=== PATIENT | male | born 1960 | race African-American/Black ===

== ENCOUNTER 2017-05-19 02:12 | Emergency (ER) | payer OTHER, SELFPAY ==
[2017-05-19] MEDS ORDERED: Lorazepam 2 MG/ML VIAL ONE (03:08)
[2017-05-19] MEDS ORDERED: AMOXicillin 250 MG CAP ONE (03:09)
[2017-05-19] MEDS ORDERED: Dexamethasone 10 MG/ML VIAL ONE (03:09)
[2017-05-19] MEDS ORDERED: Benzonatate 100 MG CAP ONE (03:09)
[2017-05-19] MEDS ORDERED: Ondansetron HCl/PF 4 MG/2 ML Vial ONE (03:09)
[2017-05-19] MEDS ORDERED: Ketorolac Tromethamine 30 MG/ML VIAL ONE (03:09)
[2017-05-19] MEDS ORDERED: methylPREDNISolone Sod Succ/PF 125 MG/2 ML VIAL ONE (03:09)
[2017-05-19 03:23] LABS: Band 2 % (5-11); Hemoglobin 15.4 g/dL (14.0-18.0); Hypochromia SLIGHT = 6-15 cells (100X) (0-5/hpf); Large Platelets SLIGHT; Lymphocytes 6 % (21-51); MDiff Complete? YES; Mean Corpuscular HGB CONC 31.2 g/dL (32.0-36.0); Mean Corpuscular Hemoglobin 30.6 pg (27.0-31.0); Mean Platelet Volume 10.7 fL (7.4-10.4); Monocytes 7 % (0-10); Neutrophil 84 % (42-75); PLT Morphology Comment Appears Adequate; PTT 26.9 SEC (22.9-36.1); Platelet Count 227 thou/uL (130-400); Prothrombin Time 12.9 SEC (12.0-14.7); RBC Distribution Width 12.3 % (11.5-14.5); RBC Morphology Abnormal; Reactive Lymphocytes 1 % (0-10); Red Blood Cell (RBC) Count 5.04 mill/uL (4.70-6.10); White Blood Cell (WBC) Count 20.5 thou/uL (4.8-10.8)
[2017-05-19 03:32] LABS: ALT (SGPT) 65 U/L (8-55); AST (SGOT) 87 U/L (5-34); Acetaminophen Less than 6.0 mcg/mL (10.0-30.0); Albumin 4.1 g/dL (3.5-5.0); Alcohol Less than 10 mg/dL (Less than 10); Alkaline Phosphatase 157 U/L (40-150); Anion Gap 17 mmol/L (10-20); BUN (Urea Nitrogen) 13 mg/dL (8.4-25.7); Bilirubin, Total 0.4 mg/dL (0.2-1.2); CK (CPK) 161 U/L (30-200); CKMB 2.1 ng/mL (0-6.6); Calc. Creatinine Clearance 0 mL/min (70-130); Calcium 8.8 mg/dL (7.8-10.44); Carbon Dioxide 25 mmol/L (22-29); Chloride 103 mmol/L (98-107); Estimated GFR-MDRD 84; Globulin 3.5 g/dL (2.4-3.5); Glucose 209 mg/dL (70-105); Potassium 3.5 mmol/L (3.5-5.1); Protein, Total 7.6 g/dL (6.0-8.3); Salicylate Less than 8.0 mg/dL (15.0-30.0); Sodium 141 mmol/L (136-145); Troponin I 0.027 ng/mL (< 0.028)
[2017-05-19 06:40] LABS: Bilirubin Negative (Negative); Blood, Urine Negative (Negative); Clarity Clear (Clear); Glucose, Urine (Dipstick) 100 mg/dL (Negative); Leukocyte Negative (Negative); Nitrite Negative (Negative); Protein, Urine (Dipstick) 100 mg/dL (Neg-Trace); Specific Gravity, Urine 1.025 (1.005-1.030); Urobilinogen 0.2 mg/dL (0.2-1.0); pH, Urine 5.5 (5.0-9.0)
[2017-05-19 06:42] LABS: Bacteria/HPF Rare-Few HPF (None Seen); RBC/HPF 0-3 HPF (0-3); Squamous Epithelial 0-3 HPF (0-3); WBC/HPF 0-3 HPF (0-3)
[2017-05-19 06:55] LABS: Amphetamine Not Detected (NotDetected); Barbiturates Screen Not Detected (NotDetected); Benzodiazepine Screen Detected (NotDetected); Cocaine Metabolite Screen Detected (NotDetected); Medtox Control Line Valid? VALID (VALID); Methadone Not Detected (NotDetected); Methamphetamine Not Detected (NotDetected); Opiate Screen Not Detected (NotDetected); Oxycodone Screen Not Detected (NotDetected); Phencyclidine (PCP) Not Detected (NotDetected); THC/Cannabinoid Screen Not Detected (NotDetected); Tricyclic Screen Not Detected (NotDetected)
--- NOTE | 2017-05-19 08:02 | RAD ---
PORTABLE AP CHEST: Date: 05-19-17 History: Dyspnea. Comparison: 12-10-16 FINDINGS: Cardiac silhouette is magnified by projection but does appear mildly enlarged. There is increased per ihilar interstitial densities bilaterally which could be related to either asymmetric pulmonary edema or infectious process. No consolidation or pleural fluid is evident. No other interval change. IMPRESSION: 1. Bilateral perihilar interstitial opacities greater in the left upper lung zone. Findings may be re lated to either asymmetric pulmonary edema or infectious process. Continued follow up to resolution i s recommended. 2. Cardiomegaly. POS: [facility]
== END 2017-05-19 07:24 | disposition home or self-care (01) ==
LOC: MADERS 02:12
DX: F41.9 Anxiety disorder, unspecified (principal); F14.10 Cocaine abuse, uncomplicated; J44.9 Chronic obstructive pulmonary disease, unspecified; I25.2 Old myocardial infarction; I11.0 Hypertensive heart disease with heart failure; I50.9 Heart failure, unspecified; F17.210 Nicotine dependence, cigarettes, uncomplicated
CPT/HCPCS: 71045; 80053; 80306; 80307; 81001; 82553; 83880; 84484; 85025; 85379; 85610; 85730; 93005; 94640; 96374; 96375; J1100; J1885; J2060; J2405; J2930; J7620

== ENCOUNTER 2018-03-02 02:17 | Emergency (ER) | payer SELFPAY ==
[2018-03-02] MEDS ORDERED: Sodium Chloride For Inhalation 0.9% 3 ML NEB ONE (02:22)
[2018-03-02] MEDS ORDERED: Morphine 4 MG/ML VIAL ONE (02:35)
[2018-03-02] MEDS ORDERED: cefTRIAXone\\ROCEPHIN 1 GM VIAL ONE (02:35)
[2018-03-02] MEDS ORDERED: Ondansetron HCl/PF 4 MG/2 ML Vial ONE (02:35)
[2018-03-02] MEDS ORDERED: Furosemide 40 MG/4 ML VIAL ONE (02:49)
[2018-03-02 03:07] LABS: Anion Gap 18 mmol/L (10-20); BUN (Urea Nitrogen) 18 mg/dL (8.4-25.7); CK (CPK) 130 U/L (30-200); Calc. Creatinine Clearance 0 mL/min (70-130); Calcium 9.5 mg/dL (7.8-10.44); Carbon Dioxide 24 mmol/L (22-29); Chloride 106 mmol/L (98-107); Estimated GFR-MDRD 69; Glucose 243 mg/dL (70-105); Potassium 3.5 mmol/L (3.5-5.1); Sodium 144 mmol/L (136-145)
[2018-03-02 03:13] LABS: Troponin I 0.067 ng/mL (< 0.028)
[2018-03-02 03:28] LABS: #Basophils 0.2 thou/uL (0.0-0.2); #Eosinphils 0.1 thou/uL (0.0-0.7); #Lymphocytes 4.9 thou/uL (1.20-3.40); #Monocytes 1.4 thou/uL (0.11-0.59); #Neutrophils 8.9 thou/uL (1.40-6.50); %Basophils 1.4 % (0.0-1.0); %Eosinophils 0.5 % (0.0-10.0); %Lymphocytes 31.5 % (21.0-51.0); %Monocytes 8.8 % (0.0-10.0); %Neutrophils 57.9 % (42.0-75.0); Mean Corpuscular HGB CONC 32.2 g/dL (32.0-36.0); Mean Corpuscular Hemoglobin 30.9 pg (27.0-31.0); Mean Corpuscular Volume 95.9 fL (78.0-98.0); Mean Platelet Volume 11.2 fL (7.4-10.4); Platelet Count 258 thou/uL (130-400); RBC Distribution Width 12.4 % (11.5-14.5); Red Blood Cell (RBC) Count 4.84 mill/uL (4.70-6.10); White Blood Cell (WBC) Count 15.4 thou/uL (4.8-10.8)
[2018-03-02 03:35] LABS: CKMB 2.8 ng/mL (0-6.6)
[2018-03-02] MEDS ORDERED: Fentanyl 100 MCG/2 ML VIAL ONE (03:35)
--- NOTE | 2018-03-02 08:09 | RAD ---
FRONTAL VIEW CHEST: Date: 03/02/18 COMPARISON: 06/14/17. INDICATION: Dyspnea. FINDINGS: There is diffuse abnormal interstitial and alveolar opacification throughout the lungs, with a more f ocal area of opacity at the right suprahilar region. The cardiac silhouette and pulmonary vasculature are enlarged. No obvious effusion or discrete pneumothorax. IMPRESSION: Diffuse abnormal pulmonary parenchymal opacities, which may be on the basis of a diffuse atypical pne umonia. Alternatively, superimposed edema and/or inflammatory process not excluded. Recommend clinica l correlation, as well as imaging follow-up, to confirm resolution. CODE T.
[2018-03-02] MEDS ORDERED: HYDROcodone/Acetaminophen 5/325 mg Tablet ONE (09:41)
[2018-03-02] MEDS ORDERED: Ibuprofen 800 MG TAB ONE (09:41)
[2018-03-02] MEDS ORDERED: Bacitracin Zinc 1 Packet ONE (10:44)
[2018-03-02] MEDS ORDERED: Cephalexin 500 MG CAP ONE (10:44)
== END 2018-03-02 04:40 | disposition short-term general hospital (02) ==
LOC: MADERS 02:17
DX: I11.0 Hypertensive heart disease with heart failure (principal); I50.9 Heart failure, unspecified; J44.1 Chronic obstructive pulmonary disease with (acute) exacerbation; I25.2 Old myocardial infarction; F17.210 Nicotine dependence, cigarettes, uncomplicated; Z79.899 Other long term (current) drug therapy
CPT/HCPCS: 36415; 71045; 80048; 82550; 82553; 83880; 84484; 85025; 93005; 94644; 94760; 96374; 96375; J0696; J1940; J2270; J2405; J3010; J7620

== ENCOUNTER 2018-04-17 12:24 | Emergency (ER) | payer SELFPAY ==
[2018-04-17] MEDS ORDERED: Furosemide 40 MG/4 ML VIAL ONE (13:03)
[2018-04-17] MEDS ORDERED: Furosemide 20 MG/2 ML VIAL ONE (13:03)
[2018-04-17 13:32] LABS: Anion Gap 12 mmol/L (10-20); BUN (Urea Nitrogen) 19 mg/dL (8.4-25.7); Calc. Creatinine Clearance 0 mL/min (70-130); Carbon Dioxide 25 mmol/L (22-29); Chloride 109 mmol/L (98-107); Estimated GFR-MDRD Greater than 90; Glucose 100 mg/dL (70-105); Potassium 3.4 mmol/L (3.5-5.1); Sodium 143 mmol/L (136-145)
[2018-04-17] MEDS ORDERED: Potassium Chloride 20 MEQ TAB ONE (14:12)
== END 2018-04-17 14:23 | disposition home or self-care (01) ==
LOC: MADERS 12:24
DX: I11.0 Hypertensive heart disease with heart failure (principal); I50.9 Heart failure, unspecified; E87.6 Hypokalemia; J44.9 Chronic obstructive pulmonary disease, unspecified; I25.2 Old myocardial infarction; F17.210 Nicotine dependence, cigarettes, uncomplicated; Z79.899 Other long term (current) drug therapy; Z79.82 Long term (current) use of aspirin
CPT/HCPCS: 80048; 96374; J1940

== ENCOUNTER 2018-06-03 14:10 | Emergency (ER) | payer SELFPAY ==
[2018-06-03] MEDS ORDERED: predniSONE 10 MG TAB ONE (14:47)
--- NOTE | 2018-06-03 15:11 | RAD ---
CHEST TWO VIEWS: HISTORY: Dyspnea. CHF. COMPARISON: 03/02/2018 FINDINGS: The cardiac silhouette and pulmonary vasculature are at the upper limits of normal. The mediastinum is midline with aortic calcification. No lobar consolidation, pneumothorax, or pleural fluid. IMPRESSION: 1. Borderline cardiomegaly and pulmonary vascular congestion are stable. 2. Atherosclerosis. POS: [facility]
[2018-06-03 15:15] LABS: Anion Gap 13 mmol/L (10-20); BUN (Urea Nitrogen) 13 mg/dL (8.4-25.7); Calc. Creatinine Clearance 0 mL/min (70-130); Calcium 9.4 mg/dL (7.8-10.44); Carbon Dioxide 34 mmol/L (22-29); Chloride 101 mmol/L (98-107); Estimated GFR-MDRD Greater than 90; Glucose 100 mg/dL (70-105); Potassium 3.4 mmol/L (3.5-5.1); Sodium 145 mmol/L (136-145)
[2018-06-03 15:37] LABS: CKMB 1.4 ng/mL (0-6.6)
[2018-06-03] MEDS ORDERED: Furosemide 20 MG/2 ML VIAL ONE (16:04)
[2018-06-03] MEDS ORDERED: Furosemide 40 MG/4 ML VIAL ONE (16:04)
[2018-06-03] MEDS ORDERED: Sodium Chloride 0.9% 0 ML ONE (17:13)
[2018-06-03] MEDS ORDERED: Acetaminophen 500 MG TAB ONE (17:13)
[2018-06-03] MEDS ORDERED: Lorazepam 2 MG/ML VIAL ONE (17:13)
[2018-06-03] MEDS ORDERED: Potassium Chloride 20 MEQ TAB ONE (17:25)
== END 2018-06-03 17:35 | disposition home or self-care (01) ==
LOC: MADERS 14:10
DX: I50.9 Heart failure, unspecified (principal); E87.6 Hypokalemia; I25.10 Atherosclerotic heart disease of native coronary artery without angina pectoris; Z79.899 Other long term (current) drug therapy; Z79.82 Long term (current) use of aspirin
CPT/HCPCS: 36415; 71046; 80048; 82553; 83880; 84484; 93005; 96372; J1940; J2060; J7050; J7512; J7620

== ENCOUNTER 2018-11-29 11:39 | Emergency (ER) | payer MEDICAID, OTHER ==
--- NOTE | 2018-11-29 12:31 | CT ---
CT ABDOMEN AND PELVIS WITHOUT CONTRAST: HISTORY: Bilateral flank pain. COMPARISON: 05/23/2014 TECHNIQUE: Multiple contiguous axial images were obtained in a CT of the abdomen and pelvis without contrast. C oronal reformats were performed. FINDINGS: Calcifications in the hilar regions of both kidneys are stable and likely represent vascular calcific ations. No obvious collecting system calcifications are seen. No calcifications are seen along the ureters or within the urinary bladder. The liver, gallbladder, adrenal glands, spleen, and pancreas are unremarkable, although evaluation is limited without IV contrast. No free air, free fluid, or stranding changes are seen in the abdomen or pelvis. The large and small bowel are unremarkable. The appendix is unremarkable. No abdominal or pelvic ly mphadenopathy are seen. There is a stable, well circumscribed mass along the anterior abdominal wall , just anterior to the liver, measuring 2.3 cm in greatest dimension. Atherosclerotic calcifications are seen in the aorta. Degenerative changes are seen in the spine. The visualized inferior thorax and abdominal wall soft t issues are unremarkable. IMPRESSION: 1. No evidence of acute intraabdominal/pelvic abnormality. 2. Stable mass along the anterior peritoneum, just anterior to the liver. This is nonspecific. POS: [facility]
[2018-11-29 12:33] LABS: #Basophils 0.2 thou/uL (0.0-0.2); #Eosinphils 0.1 thou/uL (0.0-0.7); #Lymphocytes 2.1 thou/uL (1.20-3.40); #Neutrophils 6.6 thou/uL (1.40-6.50); %Basophils 1.6 % (0.0-1.0); %Lymphocytes 21.6 % (21.0-51.0); %Monocytes 9.8 % (0.0-10.0); %Neutrophils 66.1 % (42.0-75.0); Hemoglobin 13.2 g/dL (14.0-18.0); Mean Corpuscular HGB CONC 31.2 g/dL (32.0-36.0); Mean Corpuscular Hemoglobin 27.9 pg (27.0-31.0); Mean Corpuscular Volume 89.5 fL (78.0-98.0); Mean Platelet Volume 10.5 fL (7.4-10.4); Platelet Count 204 thou/uL (130-400); RBC Distribution Width 12.6 % (11.5-14.5); Red Blood Cell (RBC) Count 4.71 mill/uL (4.70-6.10); White Blood Cell (WBC) Count 9.9 thou/uL (4.8-10.8)
[2018-11-29 12:35] LABS: Bilirubin Negative (Negative); Blood, Urine Negative (Negative); Clarity Clear (Clear); Glucose, Urine (Dipstick) Negative (Negative); Leukocyte Negative (Negative); Nitrite Negative (Negative); Protein, Urine (Dipstick) Negative (Neg-Trace); Urobilinogen 0.2 mg/dL (Less than 2)
[2018-11-29 12:52] LABS: ALT (SGPT) 26 U/L (8-55); AST (SGOT) 22 U/L (5-34); Albumin 4.3 g/dL (3.5-5.0); Alkaline Phosphatase 87 U/L (40-150); Anion Gap 15 mmol/L (10-20); BUN (Urea Nitrogen) 20 mg/dL (8.4-25.7); Bilirubin, Total 0.4 mg/dL (0.2-1.2); Calc. Creatinine Clearance 0 mL/min (70-130); Calcium 9.3 mg/dL (7.8-10.44); Carbon Dioxide 31 mmol/L (22-29); Chloride 100 mmol/L (98-107); Estimated GFR-MDRD 72; Globulin 3.6 g/dL (2.4-3.5); Glucose 101 mg/dL (70-105); Lipase 44 U/L (8-78); Potassium 4.3 mmol/L (3.5-5.1); Protein, Total 7.9 g/dL (6.0-8.3); Sodium 142 mmol/L (136-145)
== END 2018-11-29 13:02 | disposition home or self-care (01) ==
LOC: MADERS 11:39
DX: R10.9 Unspecified abdominal pain (principal); I11.0 Hypertensive heart disease with heart failure; I50.9 Heart failure, unspecified; J44.9 Chronic obstructive pulmonary disease, unspecified; Z87.891 Personal history of nicotine dependence; Z79.899 Other long term (current) drug therapy; Z79.82 Long term (current) use of aspirin
CPT/HCPCS: 36415; 74176; 80053; 81003; 83690; 85025

== ENCOUNTER 2019-04-05 12:37 | Outpatient (CLI) | payer OTHER ==
--- NOTE | 2019-04-05 14:41 | RAD ---
LEFT RIBS 4 VIEWS: Date: 04/05/19 HISTORY: Left-sided rib pain. No history of trauma. FINDINGS: Heart size and mediastinum are within normal limits. Pacemaker is present. Lungs are clear of any inf iltrates. No rib fractures are identified. No lytic or blastic bony change. IMPRESSION: Negative left ribs. POS: [facility]
== END 2019-04-05 12:38 | disposition home or self-care (01) ==
LOC: MADRAD 12:37
PROVIDERS: ATTEND Family Medicine
DX: R07.81 Pleurodynia (principal)

== ENCOUNTER 2019-11-23 09:00 | Outpatient (CLI) | payer OTHER ==
--- NOTE | 2019-11-23 09:50 | ULT ---
ULTRASOUND ABDOMEN: HISTORY: Abdominal pain FINDINGS: The liver demonstrates increased echogenicity consistent with fatty infiltration. The spleen, gallbla dder, pancreas, kidneys and visualized portions of the aorta and IVC appear normal. The common duct measures 3 mm in diameter. No free fluid is seen. IMPRESSION: Fatty liver.
== END 2019-11-23 09:01 | disposition home or self-care (01) ==
LOC: MADULT 09:00
PROVIDERS: ATTEND Internal Medicine Gastroenterology
DX: R18.8 Other ascites (principal); K76.0 Fatty (change of) liver, not elsewhere classified
CPT/HCPCS: 93975

== ENCOUNTER 2020-03-25 18:32 | Emergency (ER) | payer OTHER ==
[2020-03-26 21:27] LABS: SARS-CoV-2 MS2 Positive; SARS-CoV-2 N Gene Positive; SARS-CoV-2 S Gene Positive; SARS-CoV-2 by NAA DETECTED (NotDetected); SARS-CoV-2 orf1ab Positive
== END 2020-03-25 20:04 | disposition home or self-care (01) ==
LOC: MADERS 18:32
DX: U07.1 COVID-19 (principal); R05 Cough; R09.81 Nasal congestion; I11.0 Hypertensive heart disease with heart failure; I50.9 Heart failure, unspecified; J44.9 Chronic obstructive pulmonary disease, unspecified; Z87.891 Personal history of nicotine dependence; Z79.82 Long term (current) use of aspirin; Z79.899 Other long term (current) drug therapy
CPT/HCPCS: 87635; 99283; U0003

== ENCOUNTER 2020-04-10 16:05 | Emergency (ER) | payer OTHER ==
--- NOTE | 2020-04-10 17:09 | RAD ---
RADIOGRAPH CHEST 1 VIEW: DATE: 04/10/2020 TIME: 5:07 PM HISTORY: 60-year-old male with cough COMPARISON: 03/01/2019 FINDINGS: New subtle finding of diffusely prominent interstitial markings, especially in the left lung. No card iomegaly. Left subclavian AICD. No pneumothorax. Lateral costophrenic angles are sharp. No consolidation. IMPRESSION: 1) no consolidation. 2) mild prominent interstitial markings, nonspecific.
== END 2020-04-10 17:25 | disposition home or self-care (01) ==
LOC: MADERS 16:05
DX: U07.1 COVID-19 (principal); I11.0 Hypertensive heart disease with heart failure; I50.9 Heart failure, unspecified; E11.9 Type 2 diabetes mellitus without complications; J44.9 Chronic obstructive pulmonary disease, unspecified; F17.210 Nicotine dependence, cigarettes, uncomplicated; Z79.82 Long term (current) use of aspirin; Z79.899 Other long term (current) drug therapy
CPT/HCPCS: 71045

== ENCOUNTER 2020-05-03 08:23 | Outpatient (CLI) | payer OTHER ==
--- NOTE | 2020-05-03 11:38 | RAD ---
PA AND LATERAL CHEST: Date: 05/03/2020 HISTORY: COPD and bronchitis. COMPARISON: 04/10/2020 exam. FINDINGS: Heart size within normal limits. Pacemaker is present. Lungs are clear of infiltrates. Flattening to the hemidiaphragms consistent with the history of COPD. IMPRESSION: No active intrathoracic disease. POS: [facility]
== END 2020-05-03 08:24 | disposition home or self-care (01) ==
LOC: MADRAD 08:23
PROVIDERS: ATTEND Family Medicine
DX: J40 Bronchitis, not specified as acute or chronic (principal)
CPT/HCPCS: 71046

== ENCOUNTER 2021-02-15 08:29 | Emergency (ER) | payer OTHER ==
[2021-02-15] MEDS ORDERED: Sodium Chloride 0.9% 1,000 ML ONE (08:53)
[2021-02-15] MEDS ORDERED: methylPREDNISolone Sod Succ/PF 125 MG/2 ML VIAL ONE (08:53)
[2021-02-15 09:22] LABS: Hemoglobin 13.6 g/dL (14.0-18.0); Mean Corpuscular HGB CONC 30.3 g/dL (32.0-36.0); Mean Corpuscular Hemoglobin 27.4 pg (27.0-31.0); Mean Corpuscular Volume 90.3 fL (78.0-98.0); Mean Platelet Volume 11.7 fL (7.4-10.4); Platelet Count 238 thou/uL (130-400); RBC Distribution Width 12.9 % (11.5-14.5); Red Blood Cell (RBC) Count 4.95 mill/uL (4.70-6.10); White Blood Cell (WBC) Count 11.1 thou/uL (4.8-10.8)
[2021-02-15 09:27] LABS: MDiff Complete? YES; Manual Diff?? YES
[2021-02-15 09:28] LABS: Band 3 % (5-11); Eosinophils 2 % (0-10); Lymphocytes 12 % (21-51); Monocytes 8 % (0-10); Neutrophil 75 % (42-75)
[2021-02-15 09:29] LABS: Anisocytosis SLIGHT = 6-15 cells (100X) (0-5/hpf); Platelet Morphology Comment Appears Adequate
[2021-02-15 09:33] LABS: ALT (SGPT) 20 U/L (8-55); AST (SGOT) 18 U/L (5-34); Albumin 3.7 g/dL (3.5-5.0); Alkaline Phosphatase 77 U/L (40-110); Anion Gap 13 mmol/L (10-20); BUN (Urea Nitrogen) 11 mg/dL (8.4-25.7); Bilirubin, Total 0.3 mg/dL (0.2-1.2); Calc. Creatinine Clearance 0 mL/min (70-130); Calcium 9.1 mg/dL (7.8-10.44); Carbon Dioxide 24 mmol/L (22-29); Chloride 106 mmol/L (98-107); Globulin 3.5 g/dL (2.4-3.5); Glucose 159 mg/dL (70-105); Potassium 3.9 mmol/L (3.5-5.1); Protein, Total 7.2 g/dL (6.0-8.3); Sodium 139 mmol/L (136-145)
[2021-02-15 10:00] LABS: CKMB 2.2 ng/mL (0-6.6)
== END 2021-02-15 12:57 | disposition home or self-care (01) ==
LOC: MADERS 08:29
DX: J44.1 Chronic obstructive pulmonary disease with (acute) exacerbation (principal); K21.9 Gastro-esophageal reflux disease without esophagitis; E78.5 Hyperlipidemia, unspecified; E78.00 Pure hypercholesterolemia, unspecified; I11.0 Hypertensive heart disease with heart failure; I50.9 Heart failure, unspecified; F17.210 Nicotine dependence, cigarettes, uncomplicated; Z79.82 Long term (current) use of aspirin; Z79.899 Other long term (current) drug therapy
CPT/HCPCS: 36415; 71045; 80053; 82553; 83880; 84484; 85025; 93005; 94760; 96374; 99406; J2930; J7050; J7620

== ENCOUNTER 2021-03-05 10:43 | Emergency (ER) | payer OTHER ==
[2021-03-05 11:58] LABS: #Basophils 0.1 thou/uL (0.0-0.2); #Eosinphils 0.1 thou/uL (0.0-0.7); #Lymphocytes 1.8 thou/uL (1.20-3.40); #Monocytes 0.9 thou/uL (0.11-0.59); #Neutrophils 9.1 thou/uL (1.40-6.50); %Basophils 0.7 % (0.0-1.0); %Eosinophils 0.9 % (0.0-10.0); %Lymphocytes 15.4 % (21.0-51.0); %Monocytes 7.2 % (0.0-10.0); %Neutrophils 75.8 % (42.0-75.0); Hemoglobin 11.2 g/dL (14.0-18.0); Mean Corpuscular HGB CONC 30.7 g/dL (32.0-36.0); Mean Corpuscular Hemoglobin 27.8 pg (27.0-31.0); Mean Corpuscular Volume 90.3 fL (78.0-98.0); Mean Platelet Volume 9.3 fL (7.4-10.4); Platelet Count 272 thou/uL (130-400); Red Blood Cell (RBC) Count 4.05 mill/uL (4.70-6.10)
[2021-03-05 12:08] LABS: PTT 31.4 sec (22.9-36.1); Prothrombin Time 12.7 sec (12.0-14.7)
[2021-03-05 12:18] LABS: Carbon Dioxide 27 mmol/L (22-29); Chloride 107 mmol/L (98-107); Sodium 144 mmol/L (136-145)
[2021-03-05 12:19] LABS: ALT (SGPT) 24 U/L (8-55); Anion Gap 14 mmol/L (10-20); BUN (Urea Nitrogen) 16 mg/dL (8.4-25.7); Bilirubin, Total 0.3 mg/dL (0.2-1.2); Calc. Creatinine Clearance 0 mL/min (70-130); Calcium 9.8 mg/dL (7.8-10.44); Glucose 96 mg/dL (70-105)
[2021-03-05 12:20] LABS: Albumin 3.6 g/dL (3.5-5.0); Globulin 3.2 g/dL (2.4-3.5); Protein, Total 6.8 g/dL (6.0-8.3)
[2021-03-05 12:21] LABS: AST (SGOT) 17 U/L (5-34); Alkaline Phosphatase 87 U/L (40-110)
[2021-03-05] MEDS ORDERED: Morphine 4 MG/ML VIAL ONE (13:09)
== END 2021-03-05 14:15 | disposition short-term general hospital (02) ==
LOC: MADERS 10:43
DX: L76.82 Other postprocedural complications of skin and subcutaneous tissue (principal); R60.0 Localized edema; M79.652 Pain in left thigh; M79.662 Pain in left lower leg; K21.9 Gastro-esophageal reflux disease without esophagitis; E78.5 Hyperlipidemia, unspecified; E78.00 Pure hypercholesterolemia, unspecified; I11.0 Hypertensive heart disease with heart failure; I50.9 Heart failure, unspecified; J44.9 Chronic obstructive pulmonary disease, unspecified; F17.210 Nicotine dependence, cigarettes, uncomplicated; Z79.82 Long term (current) use of aspirin; Z79.01 Long term (current) use of anticoagulants; Z79.899 Other long term (current) drug therapy
CPT/HCPCS: 36415; 80053; 85025; 85610; 85730; 93005; J2270

== ENCOUNTER 2021-03-22 09:46 | Emergency (ER) | payer OTHER ==
[2021-03-22] MEDS ORDERED: Cephalexin 500 MG CAP ONE (10:50)
== END 2021-03-22 10:55 | disposition home or self-care (01) ==
LOC: MADERS 09:46
DX: L03.116 Cellulitis of left lower limb (principal); S81.812D Laceration without foreign body, left lower leg, subsequent encounter; E78.00 Pure hypercholesterolemia, unspecified; E78.5 Hyperlipidemia, unspecified; J45.909 Unspecified asthma, uncomplicated; I11.0 Hypertensive heart disease with heart failure; I50.9 Heart failure, unspecified; J44.9 Chronic obstructive pulmonary disease, unspecified; K21.9 Gastro-esophageal reflux disease without esophagitis; Z86.718 Personal history of other venous thrombosis and embolism; F17.210 Nicotine dependence, cigarettes, uncomplicated; Z79.899 Other long term (current) drug therapy; Z79.82 Long term (current) use of aspirin; Z79.891 Long term (current) use of opiate analgesic; X58.XXXD Exposure to other specified factors, subsequent encounter
CPT/HCPCS: 99283

== ENCOUNTER 2021-07-09 09:28 | Outpatient (CLI) | payer OTHER | END 2021-07-09 09:29 | disposition home or self-care (01) | LOC: MADRAD 09:28 | PROVIDERS: ATTEND Family Medicine | DX: R14.0 Abdominal distension (gaseous) (principal) | CPT/HCPCS: 74018 ==

== ENCOUNTER 2021-10-02 08:40 | Outpatient (CLI) | payer OTHER | END 2021-10-02 08:41 | disposition home or self-care (01) | LOC: MADULT 08:40 | PROVIDERS: ATTEND Nurse Practitioner Family | DX: D17.5 Benign lipomatous neoplasm of intra-abdominal organs (principal) | CPT/HCPCS: 76700 ==

== ENCOUNTER 2022-01-25 15:30 | Emergency (ER) | payer OTHER ==
[2022-01-25 16:20] LABS: ALT (SGPT) 10 U/L (8-55); AST (SGOT) 13 U/L (5-34); Alkaline Phosphatase 90 U/L (40-110); Anion Gap 16 mmol/L (10-20); BUN (Urea Nitrogen) 19 mg/dL (8.4-25.7); Bilirubin, Total 0.2 mg/dL (0.2-1.2); Calc. Creatinine Clearance 0 mL/min (70-130); Calcium 9.7 mg/dL (7.8-10.44); Carbon Dioxide 28 mmol/L (22-29); Chloride 104 mmol/L (98-107); Estimated GFR 65; Globulin 3.7 g/dL (2.4-3.5); Glucose 118 mg/dL (70-105); Potassium 3.9 mmol/L (3.5-5.1); Protein, Total 7.7 g/dL (6.0-8.3); Sodium 144 mmol/L (136-145)
[2022-01-25 16:21] LABS: #Basophils 0.2 thou/uL (0.0-0.2); #Eosinphils 0.2 thou/uL (0.0-0.7); #Lymphocytes 2.7 thou/uL (1.20-3.40); #Neutrophils 6.3 thou/uL (1.40-6.50); %Basophils 1.7 % (0.0-1.0); %Eosinophils 2.1 % (0.0-10.0); %Lymphocytes 25.8 % (21.0-51.0); %Monocytes 9.3 % (0.0-10.0); %Neutrophils 61.2 % (42.0-75.0); Hemoglobin 12.8 g/dL (14.0-18.0); Hypochromia SLIGHT = 6-15 cells (100X) (0-5/hpf); MDiff Complete? YES; Mean Corpuscular HGB CONC 29.6 g/dL (32.0-36.0); Mean Corpuscular Hemoglobin 25.6 pg (27.0-31.0); Mean Corpuscular Volume 86.5 fL (78.0-98.0); Mean Platelet Volume 12.5 fL (7.4-10.4); Platelet Count 209 thou/uL (130-400); Platelet Morphology Comment Appears Adequate; RBC Distribution Width 13.3 % (11.5-14.5); Red Blood Cell (RBC) Count 5.02 mill/uL (4.70-6.10); White Blood Cell (WBC) Count 10.4 thou/uL (4.8-10.8)
[2022-01-25] MEDS ORDERED: Furosemide 40 MG/4 ML VIAL ONE (16:24)
[2022-01-25 16:37] LABS: CKMB 1.7 ng/mL (0-6.6)
[2022-01-25 16:39] LABS: Bilirubin Negative (Negative); Blood, Urine Negative (Negative); Clarity Clear (Clear); Glucose, Urine (Dipstick) >=1000 mg/dL (Negative); Ketone, Urine Negative (Negative); Leukocyte Negative (Negative); Nitrite Negative (Negative); Protein, Urine (Dipstick) Negative (Neg-Trace); Urobilinogen 0.2 mg/dL (Less than 2)
== END 2022-01-25 16:57 | disposition home or self-care (01) ==
LOC: MADERS 15:30
DX: I11.0 Hypertensive heart disease with heart failure (principal); I50.9 Heart failure, unspecified; I45.89 Other specified conduction disorders; K21.9 Gastro-esophageal reflux disease without esophagitis; E78.00 Pure hypercholesterolemia, unspecified; J44.9 Chronic obstructive pulmonary disease, unspecified; F17.210 Nicotine dependence, cigarettes, uncomplicated; Z79.82 Long term (current) use of aspirin; Z79.01 Long term (current) use of anticoagulants; Z79.899 Other long term (current) drug therapy
CPT/HCPCS: 71045; 80053; 81003; 82553; 83605; 83880; 84484; 85025; 93005; 94760; 96374; J1940

== ENCOUNTER 2022-03-25 06:51 | Outpatient (CLI) | payer OTHER ==
[2022-03-25 07:42] LABS: ALT (SGPT) 11 U/L (8-55); AST (SGOT) 15 U/L (5-34); Alkaline Phosphatase 91 U/L (40-110); Anion Gap 15 mmol/L (10-20); BUN (Urea Nitrogen) 18 mg/dL (8.4-25.7); Bilirubin, Total 0.3 mg/dL (0.2-1.2); Calc. Creatinine Clearance 0 mL/min (70-130); Calcium 9.4 mg/dL (7.8-10.44); Carbon Dioxide 26 mmol/L (23-31); Cardiac Risk 3.9 (Less than 4.5); Chloride 103 mmol/L (98-107); Cholesterol 128 mg/dl (< 200 Desired); Estimated GFR 79; Globulin 3.7 g/dL (2.4-3.5); Glucose 132 mg/dL (80-115); HDL Cholesterol 33 mg/dL (>60 Neg Risk); LDL Cholesterol, Calculated 81 mg/dL; Potassium 3.7 mmol/L (3.5-5.1); Protein, Total 7.7 g/dL (5.8-8.1); Sodium 140 mmol/L (136-145); Triglycerides 72 mg/dL (Less than 150)
== END 2022-03-25 06:52 | disposition home or self-care (01) ==
LOC: MADLAB 06:51
PROVIDERS: ATTEND Internal Medicine Cardiovascular Disease
DX: I25.10 Atherosclerotic heart disease of native coronary artery without angina pectoris (principal)
CPT/HCPCS: 36415; 80053; 80061; 83880

== ENCOUNTER 2022-05-06 10:41 | Emergency (ER) | payer OTHER | END 2022-05-06 11:56 | disposition home or self-care (01) | LOC: MADERS 10:41 | DX: M79.672 Pain in left foot (principal); I73.9 Peripheral vascular disease, unspecified; K21.9 Gastro-esophageal reflux disease without esophagitis; I11.0 Hypertensive heart disease with heart failure; I50.9 Heart failure, unspecified; J44.9 Chronic obstructive pulmonary disease, unspecified; E78.00 Pure hypercholesterolemia, unspecified; F17.210 Nicotine dependence, cigarettes, uncomplicated; Z79.899 Other long term (current) drug therapy | CPT/HCPCS: 99283 ==

== ENCOUNTER 2022-05-20 11:20 | Emergency (ER) | payer OTHER ==
[2022-05-20 12:27] LABS: #Basophils 0.2 thou/uL (0.0-0.2); #Eosinphils 0.2 thou/uL (0.0-0.7); #Lymphocytes 2.1 thou/uL (1.20-3.40); #Monocytes 0.7 thou/uL (0.11-0.59); #Neutrophils 6.4 thou/uL (1.40-6.50); %Basophils 1.6 % (0.0-1.0); %Eosinophils 2.1 % (0.0-10.0); %Lymphocytes 22.4 % (21.0-51.0); %Monocytes 7.2 % (0.0-10.0); %Neutrophils 66.7 % (42.0-75.0); Hemoglobin 12.9 g/dL (14.0-18.0); Mean Corpuscular HGB CONC 30.8 g/dL (32.0-36.0); Mean Corpuscular Hemoglobin 26.9 pg (27.0-31.0); Mean Corpuscular Volume 87.4 fl (78.0-98.0); Mean Platelet Volume 9.8 fL (7.4-10.4); Platelet Count 239 10x3/uL (130-400); RBC Distribution Width 14.1 % (11.5-14.5); Red Blood Cell (RBC) Count 4.81 mill/uL (4.70-6.10); White Blood Cell (WBC) Count 9.5 10x3/uL (4.8-10.8)
[2022-05-20 12:45] LABS: ALT (SGPT) 12 U/L (8-55); AST (SGOT) 12 U/L (5-34); Albumin 3.7 g/dL (3.4-4.8); Alkaline Phosphatase 75 U/L (40-110); Anion Gap 13 mmol/L (10-20); BUN (Urea Nitrogen) 21 mg/dL (8.4-25.7); Bilirubin, Total 0.2 mg/dL (0.2-1.2); Calc. Creatinine Clearance 0 mL/min (70-130); Calcium 8.9 mg/dL (7.8-10.44); Carbon Dioxide 25 mmol/L (23-31); Chloride 108 mmol/L (98-107); Estimated GFR 84; Globulin 3.1 g/dL (2.4-3.5); Glucose 97 mg/dL (80-115); Potassium 4.2 mmol/L (3.5-5.1); Protein, Total 6.8 g/dL (5.8-8.1); Sodium 142 mmol/L (136-145)
== END 2022-05-20 13:55 | disposition home or self-care (01) ==
LOC: MADERS 11:20
DX: I73.9 Peripheral vascular disease, unspecified (principal); T82.868A Thrombosis due to vascular prosthetic devices, implants and grafts, initial encounter; K21.9 Gastro-esophageal reflux disease without esophagitis; I11.0 Hypertensive heart disease with heart failure; I50.9 Heart failure, unspecified; E78.5 Hyperlipidemia, unspecified; J44.9 Chronic obstructive pulmonary disease, unspecified; E78.00 Pure hypercholesterolemia, unspecified; F17.210 Nicotine dependence, cigarettes, uncomplicated; Z79.82 Long term (current) use of aspirin
CPT/HCPCS: 80053; 85025; 99283

== ENCOUNTER 2022-06-19 06:49 | Emergency (ER) | payer MEDICAID, OTHER ==
[2022-06-19 08:08] LABS: #Basophils 0.2 thou/uL (0.0-0.2); #Eosinphils 0.4 thou/uL (0.0-0.7); #Lymphocytes 2.6 thou/uL (1.20-3.40); #Monocytes 0.8 thou/uL (0.11-0.59); #Neutrophils 6.2 thou/uL (1.40-6.50); %Basophils 1.8 % (0.0-1.0); %Eosinophils 3.8 % (0.0-10.0); %Lymphocytes 25.4 % (21.0-51.0); %Monocytes 7.6 % (0.0-10.0); %Neutrophils 61.5 % (42.0-75.0); Hemoglobin 12.9 g/dL (14.0-18.0); Mean Corpuscular HGB CONC 31.1 g/dL (32.0-36.0); Mean Corpuscular Hemoglobin 26.8 pg (27.0-31.0); Mean Corpuscular Volume 86.1 fl (78.0-98.0); Mean Platelet Volume 10.8 fL (7.4-10.4); Platelet Count 277 10x3/uL (130-400); RBC Distribution Width 13.5 % (11.5-14.5); Red Blood Cell (RBC) Count 4.81 mill/uL (4.70-6.10); White Blood Cell (WBC) Count 10.1 10x3/uL (4.8-10.8)
[2022-06-19] MEDS ORDERED: Ipratropium/Albuterol 3 ML NEB ONE (08:09)
[2022-06-19 08:37] LABS: ALT (SGPT) 16 U/L (8-55); AST (SGOT) 13 U/L (5-34); Albumin 3.9 g/dL (3.4-4.8); Alkaline Phosphatase 88 U/L (40-110); Anion Gap 14 mmol/L (10-20); BUN (Urea Nitrogen) 15 mg/dL (8.4-25.7); Bilirubin, Total 0.2 mg/dL (0.2-1.2); Calc. Creatinine Clearance 0 mL/min (70-130); Calcium 8.3 mg/dL (7.8-10.44); Carbon Dioxide 27 mmol/L (23-31); Chloride 105 mmol/L (98-107); Estimated GFR 97; Globulin 2.9 g/dL (2.4-3.5); Glucose 104 mg/dL (80-115); Lipase 37 U/L (8-78); Potassium 3.8 mmol/L (3.5-5.1); Protein, Total 6.8 g/dL (5.8-8.1); Sodium 142 mmol/L (136-145)
[2022-06-19 08:56] LABS: Magnesium 1.6 mg/dL (1.6-2.6)
[2022-06-19] MEDS ORDERED: predniSONE 20 MG TAB ONE (09:06)
[2022-06-19] MEDS ORDERED: predniSONE 10 MG TAB ONE (09:06)
[2022-06-19] MEDS ORDERED: Acetaminophen 500 MG TAB ONE (09:06)
== END 2022-06-19 09:18 | disposition home or self-care (01) ==
LOC: MADERS 06:49
DX: J44.1 Chronic obstructive pulmonary disease with (acute) exacerbation (principal); K21.9 Gastro-esophageal reflux disease without esophagitis; I11.0 Hypertensive heart disease with heart failure; I50.9 Heart failure, unspecified; Z87.891 Personal history of nicotine dependence
CPT/HCPCS: 71045; 80053; 83690; 83735; 83880; 84484; 85025; 93005; 94640; J7512; J7620

== ENCOUNTER 2022-07-09 10:31 | Outpatient (CLI) | payer OTHER | END 2022-07-09 10:32 | disposition home or self-care (01) | LOC: MADRAD 10:31 | PROVIDERS: ATTEND Internal Medicine | DX: J44.1 Chronic obstructive pulmonary disease with (acute) exacerbation (principal) | CPT/HCPCS: 71046 ==

== ENCOUNTER 2022-08-23 17:09 | Emergency (ER) | payer OTHER ==
[2022-08-23] MEDS ORDERED: Aspirin Chewable 81 MG TAB ONE (18:55)
[2022-08-23 19:07] LABS: Eosinophils 1 % (0-10); Hemoglobin 13.2 g/dL (14.0-18.0); Lymphocytes 19 % (21-51); MDiff Complete? YES; Mean Corpuscular HGB CONC 30.3 g/dL (32.0-36.0); Mean Corpuscular Hemoglobin 27.2 pg (27.0-31.0); Mean Corpuscular Volume 89.8 fl (78.0-98.0); Mean Platelet Volume 10.5 fL (7.4-10.4); Monocytes 9 % (0-10); Neutrophil 69 % (42-75); Platelet Count 249 10x3/uL (130-400); Platelet Morphology Comment Appears Adequate; Reactive Lymphocytes 2 % (0-10); Red Blood Cell (RBC) Count 4.86 mill/uL (4.70-6.10); White Blood Cell (WBC) Count 10.9 10x3/uL (4.8-10.8)
[2022-08-23 19:09] LABS: ALT (SGPT) 15 U/L (8-55); AST (SGOT) 19 U/L (5-34); Albumin 3.8 g/dL (3.4-4.8); Alkaline Phosphatase 76 U/L (40-110); Anion Gap 18 mmol/L (10-20); BUN (Urea Nitrogen) 19 mg/dL (8.4-25.7); Bilirubin, Total 0.2 mg/dL (0.2-1.2); Calc. Creatinine Clearance 0 mL/min (70-130); Calcium 9.6 mg/dL (7.8-10.44); Carbon Dioxide 25 mmol/L (23-31); Chloride 103 mmol/L (98-107); Estimated GFR 72; Globulin 3.7 g/dL (2.4-3.5); Glucose 111 mg/dL (80-115); Lipase 24 U/L (8-78); Protein, Total 7.5 g/dL (5.8-8.1); Sodium 142 mmol/L (136-145)
[2022-08-23] MEDS ORDERED: Albuterol 2.5 MG/0.5 ML NEB ONE (19:10)
[2022-08-23] MEDS ORDERED: methylPREDNISolone Sod Succ/PF 125 MG/2 ML VIAL ONE (19:10)
[2022-08-23] MEDS ORDERED: Ipratropium Bromide 2.5 ml Neb ONE (19:10)
[2022-08-23] MEDS ORDERED: Furosemide 40 MG/4 ML VIAL ONE (19:10)
[2022-08-23] MEDS ORDERED: Sodium Chloride 0.9% 250 ML 250 ML ONE (19:10)
[2022-08-23] MEDS ORDERED: Sodium Chloride 0.9% 100 ML ONE (19:10)
[2022-08-23] MEDS ORDERED: Azithromycin 500 MG VIAL ONE (19:10)
[2022-08-23] MEDS ORDERED: cefTRIAXone (ROCEPHIN) 1 GM VIAL ONE (19:10)
[2022-08-23 21:43] LABS: Magnesium 1.5 mg/dL (1.6-2.6)
[2022-08-23 22:04] LABS: SARS-CoV-2 NAA Rapid Test Not Detected (NotDetected)
[2022-08-23] MEDS ORDERED: Magnesium 2 GM/50 ML BAG (IN WATER) ONE (22:12)
== END 2022-08-23 23:01 | disposition short-term general hospital (02) ==
LOC: MADERS 17:09
DX: I11.0 Hypertensive heart disease with heart failure (principal); I50.9 Heart failure, unspecified; J44.1 Chronic obstructive pulmonary disease with (acute) exacerbation; E83.42 Hypomagnesemia; R79.9 Abnormal finding of blood chemistry, unspecified; R09.02 Hypoxemia; D72.829 Elevated white blood cell count, unspecified; K21.9 Gastro-esophageal reflux disease without esophagitis; Z87.891 Personal history of nicotine dependence; Z79.82 Long term (current) use of aspirin; Z20.822 Contact with and (suspected) exposure to COVID-19
CPT/HCPCS: 71046; 80053; 82553; 83690; 83735; 83880; 84484; 85025; 93005; 94760; 96365; 96367; 96375; J0456; J0696; J1940; J2930; J3475; J3490; J7050; J7611

== ENCOUNTER 2023-02-15 14:51 | Emergency (ER) | payer OTHER ==
[2023-02-15 15:51] LABS: INR-International Normal Ratio 2.8; Prothrombin Time 30.7 sec (12.0-14.7)
[2023-02-15 15:51] LABS: Bilirubin Negative (Negative); Blood, Urine Small (Negative); Glucose, Urine (Dipstick) 500 mg/dL (Negative); Ketone, Urine Negative (Negative); Leukocyte Small (Negative); Nitrite Negative (Negative); Protein, Urine (Dipstick) Negative (Neg-Trace); Urobilinogen 0.2 mg/dL (Less than 2); pH, Urine 5.5 (5.0-9.0)
[2023-02-15 15:52] LABS: PTT 40.9 sec (22.9-36.1)
[2023-02-15 15:55] LABS: Clarity Hazy (Clear)
[2023-02-15 16:03] LABS: Bacteria/HPF Rare-Few HPF (None Seen); CAUTI Indications for Culture Pelvic or flank pain; Squamous Epithelial 0-3 HPF (0-3); Urine Culture Reflex Yes Yes; WBC/HPF 21-50 HPF (0-3)
[2023-02-15] MEDS ORDERED: Ipratropium/Albuterol 3 ML NEB ONE (16:08)
[2023-02-15] MEDS ORDERED: methylPREDNISolone Sod Succ/PF 125 MG/2 ML VIAL ONE ×2 (16:08→16:27)
[2023-02-15 16:09] LABS: Band 1 % (5-11); Hematocrit 44.6 % (42.0-52.0); Hemoglobin 13.4 g/dL (14.0-18.0); Large Platelets SLIGHT (None Seen); Lymphocytes 3 % (21-51); Mean Corpuscular Hemoglobin 26.3 pg (27.0-31.0); Mean Corpuscular Volume 87.5 fl (78.0-98.0); Mean Platelet Volume 12.7 fL (7.4-10.4); Monocytes 4 % (0-10); Neutrophil 82 % (42-75); Platelet Count 230 10x3/uL (130-400); Polychromasia SLIGHT = 2-3 cells (100X) (0-2/hpf); RBC Distribution Width 15.6 % (11.5-14.5); White Blood Cell (WBC) Count 19.3 10x3/uL (4.8-10.8)
[2023-02-15 16:10] LABS: MDiff Complete? YES; Manual Diff?? YES
[2023-02-15 16:11] LABS: Platelet Adequacy Comment Appears Adequate
[2023-02-15 16:14] LABS: ALT (SGPT) 21 U/L (8-55); AST (SGOT) 17 U/L (5-34); Albumin 4.2 g/dL (3.4-4.8); Alkaline Phosphatase 83 U/L (40-110); Anion Gap 18 mmol/L (10-20); BUN (Urea Nitrogen) 11 mg/dL (8.4-25.7); Bilirubin, Total 0.4 mg/dL (0.2-1.2); Calc. Creatinine Clearance 0 mL/min (70-130); Calcium 9.1 mg/dL (7.8-10.44); Carbon Dioxide 25 mmol/L (23-31); Chloride 103 mmol/L (98-107); Estimated GFR 83; Globulin 2.6 g/dL (2.4-3.5); Glucose 104 mg/dL (80-115); Lipase 15 U/L (8-78); Magnesium 1.6 mg/dL (1.6-2.6); Potassium 3.9 mmol/L (3.5-5.1); Protein, Total 6.8 g/dL (5.8-8.1); Sodium 142 mmol/L (136-145)
[2023-02-15] MEDS ORDERED: Sodium Chloride 0.9% 100 ML ONE (17:57)
[2023-02-15] MEDS ORDERED: cefTRIAXone (ROCEPHIN) 2 GM VIAL ONE (17:57)
[2023-02-15 18:05] LABS: SARS-CoV-2 NAA Rapid Test Not Detected (NotDetected)
[2023-02-16 17:56] LABS: Chlam.trachomatis by PCR,Urine Not Detected (NotDetected); GC N.gonorrhoeae PCR,UrineVOID Not Detected (NotDetected)
== END 2023-02-15 18:33 | disposition home or self-care (01) ==
LOC: MADERS 14:51
DX: N39.0 Urinary tract infection, site not specified (principal); R91.1 Solitary pulmonary nodule; I11.0 Hypertensive heart disease with heart failure; R33.9 Retention of urine, unspecified; I50.9 Heart failure, unspecified; I25.2 Old myocardial infarction; K21.9 Gastro-esophageal reflux disease without esophagitis; J44.9 Chronic obstructive pulmonary disease, unspecified; Z20.822 Contact with and (suspected) exposure to COVID-19; Z87.891 Personal history of nicotine dependence; Z79.82 Long term (current) use of aspirin; Z79.899 Other long term (current) drug therapy; Z79.01 Long term (current) use of anticoagulants; Z79.51 Long term (current) use of inhaled steroids
CPT/HCPCS: 71045; 74176; 80053; 81001; 83605; 83690; 83735; 83880; 85025; 85379; 85610; 85730; 87040; 87086; 87491; 87591; 93005; 94760; J0696; J2930; J3490; J7620

== ENCOUNTER 2023-02-15 20:41 | Emergency (ER) | payer OTHER | END 2023-02-15 21:00 | disposition home or self-care (01) | LOC: MADERS 20:41 | DX: K94.23 Gastrostomy malfunction (principal); I11.0 Hypertensive heart disease with heart failure; I50.9 Heart failure, unspecified; I25.2 Old myocardial infarction; J44.9 Chronic obstructive pulmonary disease, unspecified; Z87.891 Personal history of nicotine dependence; K21.9 Gastro-esophageal reflux disease without esophagitis; Z79.899 Other long term (current) drug therapy; Z79.82 Long term (current) use of aspirin; Z79.51 Long term (current) use of inhaled steroids; Z79.01 Long term (current) use of anticoagulants | CPT/HCPCS: 71045; 74176; 80053; 81001; 83605; 83690; 83735; 83880; 85025; 85379; 85610; 85730; 87040; 87086; 87491; 87591; 93005; 94760; 99283; J0696; J2930; J3490; J7620 ==

== ENCOUNTER 2023-02-17 19:50 | Emergency (ER) | payer OTHER ==
[2023-02-17] MEDS ORDERED: Lidocaine 2% 6 ML (Jelly) SYR ONE (20:42)
== END 2023-02-17 21:37 | disposition home or self-care (01) ==
LOC: MADERS 19:50
DX: T83.098A Other mechanical complication of other urinary catheter, initial encounter (principal); I11.0 Hypertensive heart disease with heart failure; I50.9 Heart failure, unspecified; I25.10 Atherosclerotic heart disease of native coronary artery without angina pectoris; I25.2 Old myocardial infarction; K21.9 Gastro-esophageal reflux disease without esophagitis; E66.9 Obesity, unspecified; J44.9 Chronic obstructive pulmonary disease, unspecified; Z79.82 Long term (current) use of aspirin; Z79.01 Long term (current) use of anticoagulants; Z95.0 Presence of cardiac pacemaker; Z79.899 Other long term (current) drug therapy; Z87.891 Personal history of nicotine dependence
CPT/HCPCS: 51798

== ENCOUNTER 2023-02-21 08:47 | Emergency (ER) | payer OTHER | END 2023-02-21 09:20 | disposition home or self-care (01) | LOC: MADERS 08:47 | DX: Z46.6 Encounter for fitting and adjustment of urinary device (principal); I25.10 Atherosclerotic heart disease of native coronary artery without angina pectoris; K21.9 Gastro-esophageal reflux disease without esophagitis; E66.9 Obesity, unspecified; J44.9 Chronic obstructive pulmonary disease, unspecified; I11.0 Hypertensive heart disease with heart failure; I50.9 Heart failure, unspecified; Z79.01 Long term (current) use of anticoagulants; Z79.899 Other long term (current) drug therapy; Z79.82 Long term (current) use of aspirin; Z87.891 Personal history of nicotine dependence | CPT/HCPCS: 99283 ==

== ENCOUNTER 2023-04-10 05:59 | Emergency (ER) | payer MEDICAID, OTHER ==
[2023-04-10] MEDS ORDERED: Ipratropium/Albuterol 3 ML NEB ONE ×3 (06:21→15:09)
[2023-04-10] MEDS ORDERED: methylPREDNISolone Sod Succ/PF 125 MG/2 ML VIAL ONE (06:21)
[2023-04-10 06:42] LABS: Hematocrit 42.2 % (42.0-52.0); Hemoglobin 12.7 g/dL (14.0-18.0); Mean Corpuscular HGB CONC 30.1 g/dL (32.0-36.0); Mean Corpuscular Hemoglobin 26.6 pg (27.0-31.0); Mean Corpuscular Volume 88.4 fl (78.0-98.0); Mean Platelet Volume 11.2 fL (7.4-10.4); Platelet Count 228 10x3/uL (130-400); RBC Distribution Width 14.6 % (11.5-14.5); Red Blood Cell (RBC) Count 4.77 mill/uL (4.70-6.10); White Blood Cell (WBC) Count 10.1 10x3/uL (4.8-10.8)
[2023-04-10 06:43] LABS: Anion Gap 18 mmol/L (10-20); BUN (Urea Nitrogen) 13 mg/dL (8.4-25.7); Calc. Creatinine Clearance 0 mL/min (70-130); Calcium 8.7 mg/dL (7.8-10.44); Carbon Dioxide 23 mmol/L (23-31); Chloride 105 mmol/L (98-107); Estimated GFR 98; Glucose 118 mg/dL (80-115); Lipase 23 U/L (8-78); Magnesium 1.5 mg/dL (1.6-2.6); PTT 30.1 sec (22.9-36.1); Sodium 142 mmol/L (136-145)
[2023-04-10 06:45] LABS: Troponin I 0.035 ng/mL (< 0.028)
[2023-04-10 06:46] LABS: Band 2 % (5-11); Eosinophils 2 % (0-10); Lymphocytes 36 % (21-51); MDiff Complete? YES; Monocytes 4 % (0-10); Neutrophil 56 % (42-75)
[2023-04-10 06:47] LABS: Platelet Adequacy Comment Appears Adequate; RBC Morph Comment Within Normal Limits
[2023-04-10] MEDS ORDERED: Magnesium 2 GM/50 ML BAG (IN WATER) ONE (07:14)
[2023-04-10] MEDS ORDERED: Aspirin 325 MG TAB ONE ×2 (07:14→07:15)
[2023-04-10] MEDS ORDERED: Mag-Al Plus 1200 MG/1200 MG/120 MG/30 ML UDCUP ONE (08:13)
[2023-04-10 09:07] LABS: Troponin I 0.079 ng/mL (< 0.028)
[2023-04-10 14:40] LABS: Troponin I 0.068 ng/mL (< 0.028)
[2023-04-10] MEDS ORDERED: Budesonide 0.5 MG/2 ML NEB INH SCH (15:30)
== END 2023-04-10 16:00 | disposition short-term general hospital (02) ==
LOC: MADERS 05:59
DX: J44.1 Chronic obstructive pulmonary disease with (acute) exacerbation (principal); I21.4 Non-ST elevation (NSTEMI) myocardial infarction; I11.0 Hypertensive heart disease with heart failure; I50.9 Heart failure, unspecified; I25.10 Atherosclerotic heart disease of native coronary artery without angina pectoris; K21.9 Gastro-esophageal reflux disease without esophagitis; Z79.899 Other long term (current) drug therapy; Z79.82 Long term (current) use of aspirin
CPT/HCPCS: 71045; 80048; 83605; 83690; 83735; 83880; 84484; 85025; 85379; 85610; 85730; 93005; 96365; 96375; J2930; J3475; J7620; J7626

== ENCOUNTER 2023-04-28 05:55 | Emergency (ER) | payer OTHER ==
[2023-04-28] MEDS ORDERED: Ipratropium/Albuterol 3 ML NEB ONE (06:18)
[2023-04-28] MEDS ORDERED: Albuterol 2.5 MG/0.5 ML NEB ONE (06:18)
[2023-04-28] MEDS ORDERED: methylPREDNISolone Sod Succ/PF 125 MG/2 ML VIAL ONE (06:19)
[2023-04-28 06:33] LABS: ALT (SGPT) 19 U/L (8-55); AST (SGOT) 17 U/L (5-34); Albumin 4.1 g/dL (3.4-4.8); Alkaline Phosphatase 89 U/L (40-110); Anion Gap 17 mmol/L (10-20); BUN (Urea Nitrogen) 20 mg/dL (8.4-25.7); Bilirubin, Total 0.3 mg/dL (0.2-1.2); Calc. Creatinine Clearance 0 mL/min (70-130); Calcium 8.8 mg/dL (7.8-10.44); Chloride 107 mmol/L (98-107); Estimated GFR 81; Globulin 2.9 g/dL (2.4-3.5); Glucose 122 mg/dL (80-115); Potassium 4.1 mmol/L (3.5-5.1); Sodium 141 mmol/L (136-145)
[2023-04-28 06:40] LABS: Hematocrit 44.7 % (42.0-52.0); Hemoglobin 13.1 g/dL (14.0-18.0); Mean Corpuscular HGB CONC 29.4 g/dL (32.0-36.0); Mean Corpuscular Hemoglobin 26.6 pg (27.0-31.0); Mean Corpuscular Volume 90.7 fl (78.0-98.0); RBC Distribution Width 14.9 % (11.5-14.5); Red Blood Cell (RBC) Count 4.93 mill/uL (4.70-6.10); White Blood Cell (WBC) Count 11.6 10x3/uL (4.8-10.8)
[2023-04-28 06:41] LABS: Mean Platelet Volume 12.9 fL (7.4-10.4); Platelet Count 214 10x3/uL (130-400)
[2023-04-28 06:42] LABS: Carbon Dioxide 21 mmol/L (23-31)
[2023-04-28 06:46] LABS: Band 2 % (5-11); Neutrophil 73 % (42-75)
[2023-04-28 06:47] LABS: Anisocytosis SLIGHT = 6-15 cells (100X) (0-5/hpf); Eosinophils 2 % (0-10); Lymphocytes 18 % (21-51); Monocytes 5 % (0-10); Platelet Adequacy Comment Appears Adequate
[2023-04-28 06:48] LABS: MDiff Complete? YES
== END 2023-04-28 07:32 | disposition home or self-care (01) ==
LOC: MADERS 05:55
DX: J44.1 Chronic obstructive pulmonary disease with (acute) exacerbation (principal); I25.10 Atherosclerotic heart disease of native coronary artery without angina pectoris; K21.9 Gastro-esophageal reflux disease without esophagitis; I11.0 Hypertensive heart disease with heart failure; I50.9 Heart failure, unspecified; E66.9 Obesity, unspecified; Z79.899 Other long term (current) drug therapy; Z79.01 Long term (current) use of anticoagulants; Z79.82 Long term (current) use of aspirin; Z87.891 Personal history of nicotine dependence
CPT/HCPCS: 71045; 80053; 83880; 85025; 93005; 94760; 96374; J2930; J7611; J7620

== ENCOUNTER 2023-05-24 06:58 | Emergency (ER) | payer OTHER ==
[2023-05-24] MEDS ORDERED: Albuterol 2.5 MG (3 mL) NEB ONE (07:17)
[2023-05-24] MEDS ORDERED: Albuterol 2.5 MG (0.5 mL) NEB ONE (07:18)
[2023-05-24] MEDS ORDERED: Ipratropium/Albuterol 3 ML NEB ONE (07:18)
[2023-05-24 07:25] LABS: #Basophils 0.2 thou/uL (0.0-0.2); #Eosinphils 0.3 thou/uL (0.0-0.7); #Lymphocytes 2.4 thou/uL (1.20-3.40); #Monocytes 0.8 thou/uL (0.11-0.59); #Neutrophils 6.8 thou/uL (1.40-6.50); %Basophils 1.8 % (0.0-1.0); %Eosinophils 3.1 % (0.0-10.0); %Lymphocytes 22.6 % (21.0-51.0); %Monocytes 7.8 % (0.0-10.0); %Neutrophils 64.6 % (42.0-75.0); Hematocrit 42.6 % (42.0-52.0); Hemoglobin 13.1 g/dL (14.0-18.0); Mean Corpuscular HGB CONC 30.8 g/dL (32.0-36.0); Mean Corpuscular Hemoglobin 26.5 pg (27.0-31.0); Mean Corpuscular Volume 86.2 fl (78.0-98.0); Platelet Count 249 10x3/uL (130-400); Red Blood Cell (RBC) Count 4.94 mill/uL (4.70-6.10); White Blood Cell (WBC) Count 10.5 10x3/uL (4.8-10.8)
[2023-05-24 07:43] LABS: ALT (SGPT) 13 U/L (8-55); AST (SGOT) 16 U/L (5-34); Albumin 4.2 g/dL (3.4-4.8); Alkaline Phosphatase 77 U/L (40-110); Anion Gap 17 mmol/L (10-20); BUN (Urea Nitrogen) 18 mg/dL (8.4-25.7); Bilirubin, Total 0.3 mg/dL (0.2-1.2); Calc. Creatinine Clearance 0 mL/min (70-130); Calcium 9.3 mg/dL (7.8-10.44); Carbon Dioxide 26 mmol/L (23-31); Chloride 104 mmol/L (98-107); Estimated GFR 92; Globulin 2.9 g/dL (2.4-3.5); Glucose 118 mg/dL (80-115); Magnesium 1.7 mg/dL (1.6-2.6); Potassium 3.8 mmol/L (3.5-5.1); Protein, Total 7.1 g/dL (5.8-8.1); Sodium 143 mmol/L (136-145)
[2023-05-24 07:44] LABS: Base Excess-Venous 2.8 mmol/L (-2.0 to 3.0); Bicarbonate (HCO3v) 27.8 mmol/L (22.0-28.0); CO2 Tension (PvCO2) 42.7 mmHg (42.0-51.0); Calcium, Ionized 1.05 mmol/L (1.15-1.33); Chloride 107 mmol/L (98-107); Hemoglobin - Calc 16.1 g/dL (14.0-18.0); Potassium 3.9 mmol/L (3.5-5.1); Sodium 143 mmol/L (138-145); T. Carbon Dioxide 29.1 mmol/L (22.0-28.0); vO2 Saturation-calc 99.7 % (60.0-85.0)
[2023-05-24 07:49] LABS: Troponin I 0.052 ng/mL (< 0.028)
[2023-05-24] MEDS ORDERED: methylPREDNISolone Sod Succ/PF 125 MG/2 ML VIAL ONE (07:50)
[2023-05-24] MEDS ORDERED: Furosemide 40 MG (4 mL) VIAL ONE (08:05)
[2023-05-24] MEDS ORDERED: Aspirin 325 MG TAB ONE (08:05)
[2023-05-24 08:08] LABS: SARS-CoV-2 NAA Rapid Test Not Detected (NotDetected)
[2023-05-24 10:42] LABS: Troponin I 0.048 ng/mL (< 0.028)
== END 2023-05-24 11:03 | disposition home or self-care (01) ==
LOC: MADERS 06:58
DX: I11.0 Hypertensive heart disease with heart failure (principal); I50.9 Heart failure, unspecified; J44.1 Chronic obstructive pulmonary disease with (acute) exacerbation; I25.10 Atherosclerotic heart disease of native coronary artery without angina pectoris; Z87.891 Personal history of nicotine dependence; Z79.82 Long term (current) use of aspirin; Z79.899 Other long term (current) drug therapy
CPT/HCPCS: 36415; 71045; 80053; 82330; 82803; 83735; 83880; 84484; 85025; 93005; 94760; 96374; 96375; J1940; J2930; J7611; J7620; U0002

== ENCOUNTER 2023-06-29 10:42 | Emergency (ER) | payer OTHER ==
[2023-06-29] MEDS ORDERED: Ipratropium/Albuterol 3 ML NEB ONE (10:51)
[2023-06-29] MEDS ORDERED: methylPREDNISolone Sod Succ/PF 125 MG/2 ML VIAL ONE ×2 (10:52→11:02)
[2023-06-29] MEDS ORDERED: Furosemide 40 MG (4 mL) VIAL ONE (11:02)
[2023-06-29 11:43] LABS: #Basophils 0.1 thou/uL (0.0-0.2); #Eosinphils 0.2 thou/uL (0.0-0.7); #Lymphocytes 2.1 thou/uL (1.20-3.40); #Monocytes 0.8 thou/uL (0.11-0.59); #Neutrophils 7.5 thou/uL (1.40-6.50); %Basophils 1.4 % (0.0-1.0); %Eosinophils 2.1 % (0.0-10.0); %Lymphocytes 19.2 % (21.0-51.0); %Monocytes 7.6 % (0.0-10.0); %Neutrophils 69.8 % (42.0-75.0); Hematocrit 45.5 % (42.0-52.0); Hemoglobin 13.5 g/dL (14.0-18.0); Mean Corpuscular HGB CONC 29.6 g/dL (32.0-36.0); Mean Corpuscular Hemoglobin 25.8 pg (27.0-31.0); Mean Corpuscular Volume 87.3 fl (78.0-98.0); Mean Platelet Volume 11.3 fL (7.4-10.4); Platelet Count 264 10x3/uL (130-400); RBC Distribution Width 14.9 % (11.5-14.5); Red Blood Cell (RBC) Count 5.21 mill/uL (4.70-6.10); White Blood Cell (WBC) Count 10.7 10x3/uL (4.8-10.8)
[2023-06-29 11:52] LABS: Anion Gap 14 mmol/L (10-20); BUN (Urea Nitrogen) 16 mg/dL (8.4-25.7); Calc. Creatinine Clearance 0 mL/min (70-130); Calcium 9.8 mg/dL (7.8-10.44); Carbon Dioxide 30 mmol/L (23-31); Chloride 105 mmol/L (98-107); Estimated GFR 82; Glucose 108 mg/dL (80-115); Potassium 4.1 mmol/L (3.5-5.1); Sodium 145 mmol/L (136-145)
[2023-06-29 15:33] LABS: Troponin I 0.044 ng/mL (< 0.028)
== END 2023-06-29 16:00 | disposition home or self-care (01) ==
LOC: MADERS 10:42
DX: J44.1 Chronic obstructive pulmonary disease with (acute) exacerbation (principal); I11.0 Hypertensive heart disease with heart failure; I50.41 Acute combined systolic (congestive) and diastolic (congestive) heart failure; I25.10 Atherosclerotic heart disease of native coronary artery without angina pectoris; K21.9 Gastro-esophageal reflux disease without esophagitis; Z87.891 Personal history of nicotine dependence; Z79.899 Other long term (current) drug therapy; Z79.82 Long term (current) use of aspirin
CPT/HCPCS: 36415; 71045; 80048; 83880; 84484; 85025; 93005; 96374; 96375; J1940; J2930; J7620

== ENCOUNTER 2023-07-08 11:24 | Emergency (ER) | payer OTHER ==
[2023-07-08] MEDS ORDERED: Acetaminophen 500 MG TAB ONE (12:07)
[2023-07-08 14:01] LABS: Influenza A by NAA Not Detected (NotDetected); Influenza B by NAA Not Detected (NotDetected); SARS-CoV-2 NAA Rapid Test DETECTED (NotDetected)
== END 2023-07-08 14:40 | disposition home or self-care (01) ==
LOC: MADERS 11:24
DX: U07.1 COVID-19 (principal); J44.9 Chronic obstructive pulmonary disease, unspecified; K21.9 Gastro-esophageal reflux disease without esophagitis; I25.10 Atherosclerotic heart disease of native coronary artery without angina pectoris; I11.0 Hypertensive heart disease with heart failure; I50.9 Heart failure, unspecified; I21.9 Acute myocardial infarction, unspecified; Z79.899 Other long term (current) drug therapy; Z79.84 Long term (current) use of oral hypoglycemic drugs; Z79.82 Long term (current) use of aspirin; Z79.01 Long term (current) use of anticoagulants; Z87.891 Personal history of nicotine dependence
CPT/HCPCS: 99283

== ENCOUNTER 2023-07-13 06:46 | Emergency (ER) | payer OTHER ==
[2023-07-13] MEDS ORDERED: Ipratropium/Albuterol 3 ML NEB ONE (07:19)
[2023-07-13] MEDS ORDERED: Dexamethasone 10 MG/ML VIAL ONE (07:19)
[2023-07-13] MEDS ORDERED: Albuterol 2.5 MG (3 mL) NEB ONE (07:19)
[2023-07-13 07:25] LABS: #Eosinphils 0.2 thou/uL (0.0-0.7); #Lymphocytes 2.4 thou/uL (1.20-3.40); #Monocytes 0.9 thou/uL (0.11-0.59); #Neutrophils 8.4 thou/uL (1.40-6.50); %Basophils 0.3 % (0.0-1.0); %Eosinophils 1.5 % (0.0-10.0); %Lymphocytes 20.4 % (21.0-51.0); %Monocytes 7.4 % (0.0-10.0); %Neutrophils 70.4 % (42.0-75.0); Hematocrit 37.4 % (42.0-52.0); Hemoglobin 11.8 g/dL (14.0-18.0); Mean Corpuscular HGB CONC 31.5 g/dL (32.0-36.0); Mean Corpuscular Hemoglobin 26.7 pg (27.0-31.0); Mean Corpuscular Volume 84.8 fl (78.0-98.0); Mean Platelet Volume 10.6 fL (7.4-10.4); Platelet Count 181 10x3/uL (130-400); RBC Distribution Width 14.8 % (11.5-14.5); Red Blood Cell (RBC) Count 4.41 mill/uL (4.70-6.10); White Blood Cell (WBC) Count 11.9 10x3/uL (4.8-10.8)
[2023-07-13 07:45] LABS: ALT (SGPT) 22 U/L (8-55); AST (SGOT) 17 U/L (5-34); Albumin 3.6 g/dL (3.4-4.8); Alkaline Phosphatase 62 U/L (40-110); Anion Gap 13 mmol/L (10-20); BUN (Urea Nitrogen) 16 mg/dL (8.4-25.7); Bilirubin, Total 0.2 mg/dL (0.2-1.2); Calc. Creatinine Clearance 0 mL/min (70-130); Calcium 8.6 mg/dL (7.8-10.44); Carbon Dioxide 32 mmol/L (23-31); Chloride 101 mmol/L (98-107); Estimated GFR 88; Globulin 2.8 g/dL (2.4-3.5); Glucose 113 mg/dL (80-115); Potassium 3.7 mmol/L (3.5-5.1); Protein, Total 6.4 g/dL (5.8-8.1); Sodium 142 mmol/L (136-145)
[2023-07-13 08:02] LABS: Troponin I 0.063 ng/mL (< 0.028)
[2023-07-13] MEDS ORDERED: Aspirin 325 MG TAB ONE (08:43)
[2023-07-13] MEDS ORDERED: Azithromycin 250 MG TAB ONE (08:43)
[2023-07-13 10:15] LABS: Troponin I 0.065 ng/mL (< 0.028)
== END 2023-07-13 11:00 | disposition home or self-care (01) ==
LOC: MADERS 06:46
DX: U07.1 COVID-19 (principal); J44.1 Chronic obstructive pulmonary disease with (acute) exacerbation; R79.89 Other specified abnormal findings of blood chemistry; I11.0 Hypertensive heart disease with heart failure; I50.9 Heart failure, unspecified; I25.10 Atherosclerotic heart disease of native coronary artery without angina pectoris; K21.9 Gastro-esophageal reflux disease without esophagitis; Z87.891 Personal history of nicotine dependence; Z79.82 Long term (current) use of aspirin; Z55.6 Problems related to health literacy; Z79.899 Other long term (current) drug therapy
CPT/HCPCS: 36415; 71045; 80053; 83880; 84484; 85025; 93005; 96374; J1100; J7611; J7620

== ENCOUNTER 2023-07-31 04:01 | Emergency (ER) | payer OTHER ==
[2023-07-31 04:17] LABS: #Basophils 0.3 thou/uL (0.0-0.2); #Eosinphils 0.4 thou/uL (0.0-0.7); #Lymphocytes 5.2 thou/uL (1.20-3.40); #Monocytes 1.5 thou/uL (0.11-0.59); #Neutrophils 6.6 thou/uL (1.40-6.50); %Lymphocytes 37.2 % (21.0-51.0); %Monocytes 10.7 % (0.0-10.0); Hematocrit 45.2 % (42.0-52.0); Hemoglobin 13.2 g/dL (14.0-18.0); Mean Corpuscular HGB CONC 29.2 g/dL (32.0-36.0); Mean Corpuscular Hemoglobin 25.8 pg (27.0-31.0); Mean Corpuscular Volume 88.6 fl (78.0-98.0); Mean Platelet Volume 9.9 fL (7.4-10.4); Platelet Count 282 10x3/uL (130-400); RBC Distribution Width 15.5 % (11.5-14.5); Red Blood Cell (RBC) Count 5.11 mill/uL (4.70-6.10)
[2023-07-31] MEDS ORDERED: Magnesium 2 GM/50 ML BAG (IN WATER) ONE (04:19)
[2023-07-31] MEDS ORDERED: Albuterol 2.5 MG (0.5 mL) NEB ONE ×2 (04:19→04:29)
[2023-07-31] MEDS ORDERED: Albuterol 2.5 MG (3 mL) NEB ONE (04:20)
[2023-07-31] MEDS ORDERED: Ipratropium Bromide 2.5 ml Neb ONE (04:21)
[2023-07-31] MEDS ORDERED: cefTRIAXone (ROCEPHIN) 2 GM VIAL ONE (04:31)
[2023-07-31] MEDS ORDERED: methylPREDNISolone Sod Succ/PF 125 MG/2 ML VIAL ONE (04:31)
[2023-07-31] MEDS ORDERED: Sodium Chloride 0.9% 100 ML ONE (04:31)
[2023-07-31 04:32] LABS: Base Excess-Venous -7.1 mmol/L (-2.0 to 3.0); Bicarbonate (HCO3v) 22.7 mmol/L (22.0-28.0); CO2 Tension (PvCO2) 62.1 mmHg (42.0-51.0); Calcium, Ionized 1.08 mmol/L (1.15-1.33); Chloride 107 mmol/L (98-107); Hemoglobin - Calc 16.3 g/dL (14.0-18.0); Potassium 6.2 mmol/L (3.5-5.1); Sodium 137 mmol/L (138-145); T. Carbon Dioxide 24.6 mmol/L (22.0-28.0); vO2 Saturation-calc 98.5 % (60.0-85.0)
[2023-07-31] MEDS ORDERED: Sodium Chloride 0.9% 250 ML 250 ML ONE (04:39)
[2023-07-31] MEDS ORDERED: Azithromycin 500 MG VIAL ONE (04:39)
[2023-07-31 04:50] LABS: ALT (SGPT) 20 U/L (8-55); AST (SGOT) 17 U/L (5-34); Albumin 4.1 g/dL (3.4-4.8); Alkaline Phosphatase 92 U/L (40-110); Anion Gap 17 mmol/L (10-20); BUN (Urea Nitrogen) 15 mg/dL (8.4-25.7); Bilirubin, Total 0.4 mg/dL (0.2-1.2); Calc. Creatinine Clearance 0 mL/min (70-130); Calcium 8.8 mg/dL (7.8-10.44); Carbon Dioxide 24 mmol/L (23-31); Chloride 103 mmol/L (98-107); Estimated GFR 80; Globulin 3.4 g/dL (2.4-3.5); Glucose 258 mg/dL (80-115); Potassium 4.5 mmol/L (3.5-5.1); Protein, Total 7.5 g/dL (5.8-8.1); Sodium 139 mmol/L (136-145)
[2023-07-31 04:55] LABS: INR-International Normal Ratio 2.1; PTT 38.8 sec (22.9-36.1)
[2023-07-31 05:04] LABS: Bilirubin Negative (Negative); Blood, Urine Negative (Negative); Clarity Clear (Clear); Glucose, Urine (Dipstick) >=1000 mg/dL (Negative); Ketone, Urine Negative (Negative); Leukocyte Negative (Negative); Nitrite Negative (Negative); Protein, Urine (Dipstick) 100 mg/dL (Neg-Trace); Urobilinogen 0.2 mg/dL (Less than 2)
[2023-07-31 05:12] LABS: CAUTI Indications for Culture Fever or rigors; RBC/HPF 0-3 HPF (0-3); Squamous Epithelial 0-3 HPF (0-3); WBC/HPF 0-3 HPF (0-3)
[2023-07-31 05:13] LABS: Urine Culture Reflex No No
[2023-07-31] MEDS ORDERED: Acetaminophen 500 MG TAB ONE (05:14)
[2023-07-31 05:15] LABS: Influenza A by NAA Not Detected (NotDetected); Influenza B by NAA Not Detected (NotDetected); SARS-CoV-2 NAA Rapid Test Not Detected (NotDetected)
[2023-07-31 05:19] LABS: Troponin I 0.079 ng/mL (< 0.028)
== END 2023-07-31 05:43 | disposition short-term general hospital (02) ==
LOC: MADERS 04:01
DX: J44.1 Chronic obstructive pulmonary disease with (acute) exacerbation (principal); J96.92 Respiratory failure, unspecified with hypercapnia; E11.65 Type 2 diabetes mellitus with hyperglycemia; I11.0 Hypertensive heart disease with heart failure; I50.9 Heart failure, unspecified; I25.10 Atherosclerotic heart disease of native coronary artery without angina pectoris; I25.2 Old myocardial infarction; Z95.0 Presence of cardiac pacemaker; K21.9 Gastro-esophageal reflux disease without esophagitis; Z87.891 Personal history of nicotine dependence; Z79.82 Long term (current) use of aspirin; Z79.899 Other long term (current) drug therapy
CPT/HCPCS: 71045; 80053; 81001; 82330; 82803; 83605; 83880; 84484; 85025; 85610; 85730; 87040; 93005; 94760; 96365; 96367; 96375; J0456; J0696; J2930; J3475; J3490; J7050; J7611

== ENCOUNTER 2023-09-23 11:38 | Outpatient (CLI) | payer OTHER | END 2023-09-23 11:39 | disposition home or self-care (01) | LOC: MADLAB 11:38 | PROVIDERS: ATTEND Family Medicine | DX: J44.1 Chronic obstructive pulmonary disease with (acute) exacerbation (principal); R91.1 Solitary pulmonary nodule | CPT/HCPCS: 71046 ==

== ENCOUNTER 2023-11-05 13:21 | Emergency (ER) | payer OTHER ==
[2023-11-05 14:33] LABS: Bilirubin Negative (Negative); Blood, Urine Negative (Negative); Clarity Clear (Clear); Glucose, Urine (Dipstick) >=1000 mg/dL (Negative); Ketone, Urine Negative (Negative); Leukocyte Negative (Negative); Nitrite Negative (Negative); Protein, Urine (Dipstick) Negative (Neg-Trace); Urobilinogen 0.2 mg/dL (Less than 2)
[2023-11-05 14:44] LABS: ALT (SGPT) 13 U/L (8-55); AST (SGOT) 10 U/L (5-34); Albumin 3.7 g/dL (3.4-4.8); Alkaline Phosphatase 67 U/L (40-110); Anion Gap 14 mmol/L (10-20); BUN (Urea Nitrogen) 23 mg/dL (8.4-25.7); Bilirubin, Total 0.3 mg/dL (0.2-1.2); Calc. Creatinine Clearance 0 mL/min (70-130); Calcium 8.7 mg/dL (7.8-10.44); Carbon Dioxide 28 mmol/L (23-31); Chloride 103 mmol/L (98-107); Estimated GFR 52; Globulin 2.7 g/dL (2.4-3.5); Glucose 91 mg/dL (80-115); Lipase 39 U/L (8-78); Potassium 3.4 mmol/L (3.5-5.1); Protein, Total 6.4 g/dL (5.8-8.1); Sodium 142 mmol/L (136-145)
[2023-11-05 14:46] LABS: Band 1 % (5-11); Eosinophils 2 % (0-10); Hematocrit 40.3 % (42.0-52.0); Hemoglobin 11.6 g/dL (14.0-18.0); Lymphocytes 14 % (21-51); MDiff Complete? YES; Manual Diff?? YES; Mean Corpuscular HGB CONC 28.8 g/dL (32.0-36.0); Mean Corpuscular Hemoglobin 24.8 pg (27.0-31.0); Mean Corpuscular Volume 86.1 fl (78.0-98.0); Mean Platelet Volume 10.2 fL (7.4-10.4); Monocytes 2 % (0-10); Neutrophil 80 % (42-75); Platelet Count 202 10x3/uL (130-400); RBC Distribution Width 15.3 % (11.5-14.5); Reactive Lymphocytes 1 % (0-10); Red Blood Cell (RBC) Count 4.68 mill/uL (4.70-6.10); White Blood Cell (WBC) Count 14.6 10x3/uL (4.8-10.8)
[2023-11-05 14:47] LABS: Hypochromia SLIGHT = 6-15 cells (100X) (0-5/hpf); Platelet Adequacy Comment Appears Adequate
[2023-11-05 14:54] LABS: Bacteria/HPF Rare-Few HPF (None Seen); CAUTI Indications for Culture Pelvic or flank pain; RBC/HPF None Seen HPF (0-3); Squamous Epithelial 0-3 HPF (0-3); Urine Culture Reflex No No; WBC/HPF None Seen HPF (0-3)
[2023-11-05] MEDS ORDERED: Sodium Chloride 0.9% 500 ML ONE (15:01)
== END 2023-11-05 16:47 | disposition home or self-care (01) ==
LOC: MADERS 13:21
DX: E86.0 Dehydration (principal); I11.0 Hypertensive heart disease with heart failure; I50.9 Heart failure, unspecified; J44.9 Chronic obstructive pulmonary disease, unspecified; K21.9 Gastro-esophageal reflux disease without esophagitis; Z79.82 Long term (current) use of aspirin; Z79.899 Other long term (current) drug therapy; Z87.891 Personal history of nicotine dependence
CPT/HCPCS: 80053; 81001; 83605; 83690; 85025; 96360; J7030

== ENCOUNTER 2023-11-24 13:42 | Emergency (ER) | payer OTHER ==
[2023-11-24] MEDS ORDERED: Ipratropium/Albuterol 3 ML NEB ONE (14:11)
[2023-11-24 14:27] LABS: Anion Gap 18 mmol/L (10-20); BUN (Urea Nitrogen) 17 mg/dL (8.4-25.7); Calc. Creatinine Clearance 0 mL/min (70-130); Calcium 9.4 mg/dL (7.8-10.44); Carbon Dioxide 27 mmol/L (23-31); Chloride 102 mmol/L (98-107); Estimated GFR 88; Glucose 113 mg/dL (80-115); Potassium 3.6 mmol/L (3.5-5.1); Sodium 143 mmol/L (136-145)
[2023-11-24 14:30] LABS: Troponin I 0.064 ng/mL (< 0.028)
[2023-11-24 14:32] LABS: Hematocrit 43.6 % (42.0-52.0); Hemoglobin 12.5 g/dL (14.0-18.0); Mean Corpuscular HGB CONC 28.6 g/dL (32.0-36.0); Mean Corpuscular Hemoglobin 24.6 pg (27.0-31.0); Mean Corpuscular Volume 85.9 fl (78.0-98.0); Platelet Count 282 10x3/uL (130-400); Red Blood Cell (RBC) Count 5.07 mill/uL (4.70-6.10); White Blood Cell (WBC) Count 10.1 10x3/uL (4.8-10.8)
[2023-11-24 14:33] LABS: Eosinophils 3 % (0-10); Lymphocytes 12 % (21-51); MDiff Complete? YES; Manual Diff?? YES; Monocytes 2 % (0-10); Neutrophil 73 % (42-75); Platelet Adequacy Comment Appears Adequate; Reactive Lymphocytes 9 % (0-10)
== END 2023-11-24 16:09 | disposition home or self-care (01) ==
LOC: MADERS 13:42
DX: J44.9 Chronic obstructive pulmonary disease, unspecified (principal); J96.10 Chronic respiratory failure, unspecified whether with hypoxia or hypercapnia; I11.0 Hypertensive heart disease with heart failure; I50.9 Heart failure, unspecified; Z87.891 Personal history of nicotine dependence
CPT/HCPCS: 71045; 80048; 83880; 84484; 85025; 93005; J7620

== ENCOUNTER 2024-01-07 09:48 | Emergency (ER) | payer OTHER ==
[2024-01-07] MEDS ORDERED: Ipratropium/Albuterol 3 ML NEB ONE (10:04)
[2024-01-07 10:28] LABS: INR-International Normal Ratio 1.2
[2024-01-07 10:29] LABS: PTT 33.1 sec (22.9-36.1)
[2024-01-07 10:38] LABS: ALT (SGPT) 14 U/L (8-55); AST (SGOT) 14 U/L (5-34); Alkaline Phosphatase 90 U/L (40-110); Anion Gap 17 mmol/L (10-20); BUN (Urea Nitrogen) 19 mg/dL (8.4-25.7); Bilirubin, Total 0.3 mg/dL (0.2-1.2); Calc. Creatinine Clearance 0 mL/min (70-130); Calcium 9.4 mg/dL (7.8-10.44); Carbon Dioxide 29 mmol/L (23-31); Chloride 101 mmol/L (98-107); Estimated GFR 86; Globulin 3.3 g/dL (2.4-3.5); Glucose 133 mg/dL (80-115); Magnesium 1.5 mg/dL (1.6-2.6); Potassium 4.1 mmol/L (3.5-5.1); Protein, Total 7.3 g/dL (5.8-8.1); Sodium 143 mmol/L (136-145)
[2024-01-07 10:39] LABS: Base Excess-Venous 5.3 mmol/L (-2.0 to 3.0); Bicarbonate (HCO3v) 34.3 mmol/L (22.0-28.0); CO2 Tension (PvCO2) 67.6 mmHg (42.0-51.0); Chloride 103 mmol/L (98-107); Hemoglobin - Calc 16.5 g/dL (14.0-18.0); Potassium 3.9 mmol/L (3.5-5.1); Sodium 141 mmol/L (138-145); T. Carbon Dioxide 36.4 mmol/L (22.0-28.0); vO2 Saturation-calc 76.1 % (60.0-85.0)
[2024-01-07 10:40] LABS: Troponin I 0.041 ng/mL (< 0.028)
[2024-01-07 10:46] LABS: Anisocytosis SLIGHT = 6-15 cells (100X) (0-5/hpf); Band 1 % (5-11); Eosinophils 5 % (0-10); Hematocrit 45.3 % (42.0-52.0); Hypochromia SLIGHT = 6-15 cells (100X) (0-5/hpf); Lymphocytes 20 % (21-51); MDiff Complete? YES; Mean Corpuscular HGB CONC 28.7 g/dL (32.0-36.0); Mean Corpuscular Hemoglobin 25.1 pg (27.0-31.0); Mean Corpuscular Volume 87.3 fl (78.0-98.0); Mean Platelet Volume 9.5 fL (7.4-10.4); Monocytes 6 % (0-10); Neutrophil 68 % (42-75); Platelet Adequacy Comment Appears Adequate; Platelet Count 226 10x3/uL (130-400); RBC Distribution Width 15.3 % (11.5-14.5); Red Blood Cell (RBC) Count 5.19 mill/uL (4.70-6.10); White Blood Cell (WBC) Count 11.8 10x3/uL (4.8-10.8)
[2024-01-07] MEDS ORDERED: Furosemide 40 MG (4 mL) VIAL ONE ×2 (10:47→10:48)
[2024-01-07] MEDS ORDERED: methylPREDNISolone Sod Succ/PF 125 MG/2 ML VIAL ONE (10:48)
[2024-01-07 11:02] LABS: SARS-CoV-2 E Target Negative; SARS-CoV-2 N2 Target Negative; SARS-CoV-2 NAA Rapid Test Not Detected (NotDetected); SARS-CoV-2 RdRP gene Negative
[2024-01-07 12:16] LABS: Bacteria/HPF Rare-Few HPF (None Seen); Bilirubin Negative (Negative); Blood, Urine Negative (Negative); CAUTI Indications for Culture Dysuria,urgency,freq; Clarity Clear (Clear); Glucose, Urine (Dipstick) 500 mg/dL (Negative); Ketone, Urine Negative (Negative); Leukocyte Negative (Negative); Nitrite Negative (Negative); Protein, Urine (Dipstick) Negative (Neg-Trace); RBC/HPF 0-3 HPF (0-3); Specific Gravity, Urine 1.015 (1.005-1.030); Squamous Epithelial 0-3 HPF (0-3); Urobilinogen 0.2 mg/dL (Less than 2); WBC/HPF 0-3 HPF (0-3)
[2024-01-07 12:17] LABS: Urine Culture Reflex No No
== END 2024-01-07 12:11 | disposition short-term general hospital (02) ==
LOC: MADERS 09:48
DX: J44.1 Chronic obstructive pulmonary disease with (acute) exacerbation (principal); J96.10 Chronic respiratory failure, unspecified whether with hypoxia or hypercapnia; I11.0 Hypertensive heart disease with heart failure; I50.9 Heart failure, unspecified; Z87.891 Personal history of nicotine dependence
CPT/HCPCS: 71045; 80053; 81001; 82330; 82435; 82803; 83735; 83880; 84132; 84295; 84484; 85014; 85025; 85610; 85730; 93005; 94760; 96374; 96375; J1940; J2919; J7620; U0002

== ENCOUNTER 2024-04-08 16:05 | Emergency (ER) | payer OTHER | END 2024-04-08 17:05 | LOC: MADERS 16:05 | DX: K59.00 Constipation, unspecified (principal); I25.2 Old myocardial infarction; J44.9 Chronic obstructive pulmonary disease, unspecified; Z95.0 Presence of cardiac pacemaker | CPT/HCPCS: 99283 ==

== ENCOUNTER 2024-05-15 10:56 | Emergency (ER) | payer OTHER ==
[2024-05-15] MEDS ORDERED: Ipratropium/Albuterol 3 ML NEB ONE (11:11)
[2024-05-15] MEDS ORDERED: Dexamethasone 4 MG TAB ONE (11:11)
== END 2024-05-15 11:55 | disposition home or self-care (01) ==
LOC: MADERS 10:56
DX: J10.1 Influenza due to other identified influenza virus with other respiratory manifestations (principal)
CPT/HCPCS: 71046; 87428; J7620; J8540

== ENCOUNTER 2024-11-10 10:30 | Emergency (ER) | payer OTHER ==
[2024-11-10 11:21] LABS: #Basophils 0.1 thou/uL (0.0-0.2); #Eosinophils 0.3 thou/uL (0.0-0.7); #Lymphocytes 2.2 thou/uL (1.20-3.40); #Monocytes 0.8 thou/uL (0.11-0.59); #Neutrophils 10.0 thou/uL (1.40-6.50); %Basophils 0.7 % (0.0-1.0); %Eosinophils 2.2 % (0.0-10.0); %Lymphocytes 16.3 % (21.0-51.0); %Monocytes 5.6 % (0.0-10.0); %Neutrophils 75.2 % (42.0-75.0); Hematocrit 44.2 % (42.0-52.0); Hemoglobin 12.6 g/dL (14.0-18.0); MDiff Complete? YES; Mean Corpuscular Hemoglobin 25.0 pg (27.0-31.0); Mean Corpuscular Volume 88.0 fl (78.0-98.0); Platelet Adequacy Comment Appears Adequate; Platelet Count 247 10x3/uL (130-400); Red Blood Cell (RBC) Count 5.03 mill/uL (4.70-6.10); White Blood Cell (WBC) Count 13.3 10x3/uL (4.8-10.8)
[2024-11-10 11:26] LABS: ALT (SGPT) 15 U/L (Less than 45); AST (SGOT) 17 U/L (11-34); Albumin 4.1 g/dL (3.1-4.5); Alkaline Phosphatase 89 U/L (40-110); Anion Gap 16 mmol/L (10-20); BUN (Urea Nitrogen) 36 mg/dL (8.4-25.7); Bilirubin, Total 0.3 mg/dL (0.3-1.2); Calc. Creatinine Clearance 0 mL/min (70-130); Calcium 9.4 mg/dL (7.8-10.44); Carbon Dioxide 30 mmol/L (23-31); Chloride 98 mmol/L (98-107); Globulin 3.9 g/dL (2.4-3.5); Glucose 160 mg/dL (80-115); Magnesium 1.4 mg/dL (1.6-2.6); Potassium 3.8 mmol/L (3.5-5.1); Sodium 140 mmol/L (136-145)
[2024-11-10 11:30] LABS: Troponin I 0.057 ng/mL (< 0.028)
== END 2024-11-10 12:07 | disposition home or self-care (01) ==
LOC: MADERS 10:30
DX: J44.1 Chronic obstructive pulmonary disease with (acute) exacerbation (principal); E83.42 Hypomagnesemia; I50.9 Heart failure, unspecified; Z95.0 Presence of cardiac pacemaker; Z79.51 Long term (current) use of inhaled steroids
CPT/HCPCS: 71045; 80053; 83735; 83880; 84484; 85025; 93005; 96374; J2919; J7620

== ENCOUNTER 2025-01-13 08:22 | Outpatient (CLI) | payer OTHER ==
[2025-01-13 09:00] LABS: Anion Gap 16 mmol/L (10-20); BUN (Urea Nitrogen) 15 mg/dL (8.4-25.7); Calc. Creatinine Clearance 0 mL/min (70-130); Calcium 9.2 mg/dL (7.8-10.44); Carbon Dioxide 28 mmol/L (23-31); Chloride 103 mmol/L (98-107); Glucose 116 mg/dL (80-115); Potassium 3.8 mmol/L (3.5-5.1); Sodium 143 mmol/L (136-145)
== END 2025-01-13 08:23 | disposition home or self-care (01) ==
LOC: MADLAB 08:22
PROVIDERS: ATTEND Internal Medicine Cardiovascular Disease
DX: I50.33 Acute on chronic diastolic (congestive) heart failure (principal)
CPT/HCPCS: 36415; 80048

== ENCOUNTER 2025-01-22 10:14 | Emergency (ER) | payer OTHER ==
[2025-01-22] MEDS ORDERED: Magnesium 2 GM/50 ML BAG (IN WATER) ONE (10:39)
[2025-01-22 11:12] LABS: Hematocrit 40.6 % (42.0-52.0); Hemoglobin 12.4 g/dL (14.0-18.0); MDiff Complete? YES; Mean Corpuscular Hemoglobin 25.8 pg (27.0-31.0); Mean Corpuscular Volume 84.6 fl (78.0-98.0); Platelet Count 252 10x3/uL (130-400); Red Blood Cell (RBC) Count 4.79 mill/uL (4.70-6.10); White Blood Cell (WBC) Count 12.7 10x3/uL (4.8-10.8)
[2025-01-22 11:32] LABS: Troponin I 0.037 ng/mL (< 0.028)
[2025-01-22 11:35] LABS: ALT (SGPT) 12 U/L (Less than 45); AST (SGOT) 23 U/L (11-34); Albumin 4.0 g/dL (3.1-4.5); Alkaline Phosphatase 83 U/L (40-110); Anion Gap 18 mmol/L (10-20); BUN (Urea Nitrogen) 18 mg/dL (8.4-25.7); Bilirubin, Total 0.4 mg/dL (0.3-1.2); Calc. Creatinine Clearance 0 mL/min (70-130); Calcium 9.2 mg/dL (7.8-10.44); Carbon Dioxide 25 mmol/L (23-31); Chloride 103 mmol/L (98-107); Globulin 3.7 g/dL (2.4-3.5); Glucose 97 mg/dL (80-115); Potassium 4.3 mmol/L (3.5-5.1); Sodium 142 mmol/L (136-145)
[2025-01-22] MEDS ORDERED: Albuterol 2.5 MG (3 mL) NEB ONE (11:38)
[2025-01-22 14:23] LABS: Troponin I 0.037 ng/mL (< 0.028)
[2025-01-22] MEDS ORDERED: Azithromycin 250 MG TAB ONE (14:56)
== END 2025-01-22 15:00 | disposition home or self-care (01) ==
LOC: MADERS 10:14
DX: J44.1 Chronic obstructive pulmonary disease with (acute) exacerbation (principal); C34.90 Malignant neoplasm of unspecified part of unspecified bronchus or lung; I25.10 Atherosclerotic heart disease of native coronary artery without angina pectoris; I25.2 Old myocardial infarction; I50.9 Heart failure, unspecified; Z95.0 Presence of cardiac pacemaker; Z79.899 Other long term (current) drug therapy; Z79.01 Long term (current) use of anticoagulants
CPT/HCPCS: 71045; 80053; 83880; 84484; 85025; 87426; 93005; 96365; 96366; 96375; J2919; J3475; J7611; J7620

== ENCOUNTER 2025-02-21 11:48 | Emergency (ER) | payer OTHER | END 2025-02-21 12:45 | disposition left against medical advice (07) | LOC: MADERS 11:48 | DX: Z53.21 Procedure and treatment not carried out due to patient leaving prior to being seen by health care provider (principal) ==

== ENCOUNTER 2025-02-21 18:25 | Emergency (ER) | payer OTHER ==
[2025-02-21 19:16] LABS: Hematocrit 41.0 % (42.0-52.0); Hemoglobin 12.1 g/dL (14.0-18.0); Mean Corpuscular Hemoglobin 25.3 pg (27.0-31.0); Mean Corpuscular Volume 85.9 fl (78.0-98.0); Platelet Count 302 10x3/uL (130-400); Red Blood Cell (RBC) Count 4.77 mill/uL (4.70-6.10); White Blood Cell (WBC) Count 8.3 10x3/uL (4.8-10.8)
[2025-02-21 19:17] LABS: Anisocytosis SLIGHT = 6-15 cells (100X) (0-5/hpf); MDiff Complete? YES; Platelet Adequacy Comment Appears Adequate
[2025-02-21 19:23] LABS: ALT (SGPT) 15 U/L (Less than 45); AST (SGOT) 21 U/L (11-34); Albumin 4.0 g/dL (3.1-4.5); Alkaline Phosphatase 84 U/L (40-110); Anion Gap 18 mmol/L (10-20); BUN (Urea Nitrogen) 23 mg/dL (8.4-25.7); Bilirubin, Total 0.2 mg/dL (0.3-1.2); Calc. Creatinine Clearance 0 mL/min (70-130); Calcium 9.4 mg/dL (7.8-10.44); Carbon Dioxide 26 mmol/L (23-31); Chloride 106 mmol/L (98-107); Globulin 3.7 g/dL (2.4-3.5); Glucose 89 mg/dL (80-115); Magnesium 1.3 mg/dL (1.6-2.6); Potassium 4.2 mmol/L (3.5-5.1); Sodium 146 mmol/L (136-145)
[2025-02-21 19:28] LABS: Troponin I 0.068 ng/mL (< 0.028)
[2025-02-21] MEDS ORDERED: Albuterol 2.5 MG (3 mL) NEB ONE (19:29)
[2025-02-21 19:30] LABS: Glucose, Urine (Dipstick) 500 mg/dL (Negative); Leukocyte Small (Negative); Protein, Urine (Dipstick) Negative (Neg-Trace); Specific Gravity, Urine 1.010 (1.005-1.030)
[2025-02-21] MEDS ORDERED: Magnesium 2 GM/50 ML BAG (IN WATER) ONE (19:30)
[2025-02-21 19:33] LABS: Bicarbonate (HCO3v) 32.4 mmol/L (22.0-28.0); CO2 Tension (PvCO2) 49.1 mmHg (42.0-51.0); Calcium, Ionized 1.12 mmol/L (1.15-1.33); Chloride 108 mmol/L (98-107); Hemoglobin - Calc 14.5 g/dL (14.0-18.0); Potassium 5.4 mmol/L (3.5-5.1); Sodium 144 mmol/L (138-145); T. Carbon Dioxide 33.9 mmol/L (22.0-28.0); vO2 Saturation-calc 92.3 % (60.0-85.0)
[2025-02-21 19:34] LABS: Bacteria/HPF Rare-Few HPF (None Seen); CAUTI Indications for Culture Dysuria,urgency,freq; RBC/HPF 0-3 HPF (0-3); Urine Culture Reflex Yes Yes; WBC/HPF 21-50 HPF (0-3)
== END 2025-02-21 21:55 | disposition home or self-care (01) ==
LOC: MADERS 18:25
DX: J44.1 Chronic obstructive pulmonary disease with (acute) exacerbation (principal); I50.9 Heart failure, unspecified; I25.2 Old myocardial infarction; Z95.0 Presence of cardiac pacemaker
CPT/HCPCS: 71045; 80053; 81001; 82330; 82435; 82803; 83735; 83880; 84132; 84295; 84484; 85014; 85025; 87077; 87086; 87186; 87428; 93005; 94760; 96374; 96375; J2919; J3475; J7611

== ENCOUNTER 2025-03-31 10:43 | Outpatient (CLI) | payer OTHER | END 2025-03-31 10:44 | disposition home or self-care (01) | LOC: MADRAD 10:43 | PROVIDERS: ATTEND Family Medicine | DX: J44.9 Chronic obstructive pulmonary disease, unspecified (principal) | CPT/HCPCS: 71046 ==